=== PATIENT | male | born 1950 | race Caucasian/White ===

== ENCOUNTER 2018-04-16 14:46 | Inpatient (IN) | payer MEDICARE, OTHER ==
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
[2018-04-16 16:38] LABS: % BASOPHILS 0.6 % (0.0-2.0); % EOSINOPHILS 4.3 % (0.0-5.0); % LYMPHOCYTES 31.3 % (20.0-50.0); % MONOCYTES 8.3 % (2.0-10.0); % NEUTROPHILS 55.5 % (40.0-80.0); EOSINOPHILE ABSOLUTE 0.3 Th/cmm (0.1-0.4); HEMATOCRIT 40.2 % (41.0-60); HEMOGLOBIN 13.2 gm/dL (12-16); MEAN CELL VOLUME 87.9 fl (80-99); MEAN CORPUSCULAR HGB CONC 32.9 pg (28.0-36.0); MONOCYTE ABSOLUTE 0.5 Th/cmm (0.3-1.0); NEUTROPHILE ABSOLUTE 3.5 Th/cmm (1.8-8.0); PLATELET COUNT 178 Th/cmm (150-400); RED BLOOD COUNT 4.57 Mil/cmm (3.80-5.80); RED CELL DISTRIBUTION WIDTH 13.2 % (11.5-20.0); WHITE BLOOD COUNT 6.3 Th/cmm (4.8-10.8)
[2018-04-16 16:52] LABS: ALB/GLOB RATIO 1.2 (1.0-1.8); ALBUMIN 4.2 gm/dL (4.2-5.5); ALKALINE PHOSPHATASE 83 U/L (34-104); ANION GAP 10.5 (7.0-16.0); BILIRUBIN,TOTAL 0.4 mg/dL (0.3-1.0); BUN - UREA NITROGEN 24 mg/dL (7-25); CALCIUM SERUM 9.7 mg/dL (8.6-10.3); CARBON DIOXIDE 28.6 mEq/L (21.0-31.0); CHLORIDE 101 mEq/L (98-107); CHOLESTEROL 116 mg/dL (<200); CREATININE - SERUM 0.9 mg/dL (0.7-1.3); GFR AFRICAN-AMERICAN > 60.0 ml/min (>90); GFR NON AFRICAN-AMERICAN > 60.0 ml/min; GLUCOSE 106 mg/dL (70-105); HDL -HIGH DENSITY LIPOPROTEIN 36 mg/dL (23-92); POTASSIUM SERUM 4.1 mEq/L (3.5-5.1); SGOT 32 U/L (13-39); SGPT/ALT 26 U/L (7-52); SODIUM SERUM 136 mEq/L (136-145); TOTAL PROTEIN,SERUM 7.8 gm/dL (6.0-8.3); TRIGLYCERIDES 149 mg/dL (<150)
[2018-04-16 18:43] LABS: URINE SOURCE CLEAN C
[2018-04-16 18:47] LABS: URINE BILIRUBIN NEGATIVE (NEGATIVE); URINE BLOOD NEGATIVE (NEGATIVE); URINE GLUCOSE (UA) NEGATIVE (NEGATIVE); URINE KETONE NEGATIVE (NEGATIVE); URINE LEUKOCYTE ESTERASE NEGATIVE (NEGATIVE); URINE NITRATE NEGATIVE (NEGATIVE); URINE PH 6.5 (4.6 - 8.0); URINE PROTEIN NEGATIVE (NEGATIVE); URINE UROBILINOGEN 0.2 E.U./dL (0.2 - 1.0)
[2018-04-16 18:48] LABS: URINE CLARITY CLEAR (CLEAR); URINE COLOR YELLOW
[2018-04-16 18:49] LABS: URINE MICROSCOPIC INDICATED? NO
[2018-04-16 20:51] VITALS: BP 141/80
[2018-04-16] MEDS ORDERED: Magnesium Hydroxide (MOM) 30 mL UDC PO PRN (20:52)
[2018-04-16 21:27] LABS: CHOLESTEROL 117 mg/dL (<200); HDL -HIGH DENSITY LIPOPROTEIN 37 mg/dL (23-92); TRIGLYCERIDES 148 mg/dL (<150)
[2018-04-17] MEDS ORDERED: APAP 325mg/Butalbital 50mg/Caff 40mg Tab PO PRN (05:21)
[2018-04-17] MEDS: Multivitamin w/ Minerals Tab PO SCH (08:25)
[2018-04-17 12:24] LABS: INR 2.35 (0.5-1.4); PROTHROMBIN TIME (TEST) 23.5 SECONDS (9.5-11.5)
[2018-04-17] MEDS ORDERED: WARFARIN SODIUM PO ONE (14:00)
--- NOTE | 2018-04-17 14:04 | Diagnostic Imaging Report ---
Chest x-ray (single view, AP) HISTORY: Cough Patient is rotated. The heart is enlarged. There is a left paraspinal retrocardiac density probably related to a tortuous descending aorta. No acute focal pulmonary processes. Degenerative changes noted to the spine. IMPRESSION: 1. Cardiomegaly 2. No acute abnormalities
[2018-04-17 16:20] LABS: % BASOPHILS 0.8 % (0.0-2.0); % EOSINOPHILS 6.1 % (0.0-5.0); % LYMPHOCYTES 35.2 % (20.0-50.0); % MONOCYTES 7.8 % (2.0-10.0); % NEUTROPHILS 50.1 % (40.0-80.0); EOSINOPHILE ABSOLUTE 0.3 Th/cmm (0.1-0.4); HEMATOCRIT 38.1 % (41.0-60); HEMOGLOBIN 12.8 gm/dL (12-16); LYMPHOCYTE ABSOLUTE 1.8 Th/cmm (1.5-3.0); MEAN CELL VOLUME 86.3 fl (80-99); MEAN CORPUSCULAR HEMOGLOBIN 29.1 pg (27.0-31.0); MEAN CORPUSCULAR HGB CONC 33.7 pg (28.0-36.0); MEAN PLATELET VOLUME 8.1 fl; MONOCYTE ABSOLUTE 0.4 Th/cmm (0.3-1.0); NEUTROPHILE ABSOLUTE 2.7 Th/cmm (1.8-8.0); PLATELET COUNT 143 Th/cmm (150-400); RED BLOOD COUNT 4.41 Mil/cmm (3.80-5.80); RED CELL DISTRIBUTION WIDTH 13.2 % (11.5-20.0); WHITE BLOOD COUNT 5.2 Th/cmm (4.8-10.8)
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
--- NOTE | 2018-04-17 23:47 | Psychiatric Evaluation ---
DATE OF SERVICE: 04/16/2018 CHIEF COMPLAINT: "I am hearing voices. "I don't know what I can do." HISTORY OF PRESENT ILLNESS: This is one of multiple psychiatric hospitalizations for this patient who is reported to have been this morning to internal stimuli and has been demanding that he should be discharged right away. Staff was spoken to. The patient is interviewed. The patient is reported to have been diagnosed to have schizoaffective disorder and has been getting easily agitated. Sleep is noted to be poor. Appetite is also noted to be very poor. The patient is reporting that he had been diagnosed to have syphilis and hepatitis and he needs to be on his Klonopin and methadone. The patient is reported to have been in the past on Zyprexa, Haldol, lithium, but is reported to have not been compliant to the medications. Review of the chart indicated that the patient wants only methadone and Klonopin at this time. PAST PSYCHIATRIC HISTORY: The patient had been hospitalized and was diagnosed with the schizoaffective disorder. MEDICAL HISTORY: Physical examination is requested to be done by Dr. Ortiz. SUBSTANCE ABUSE HISTORY: The patient denies use of any drugs or alcohol. The patient is on methadone. SOCIAL HISTORY: The patient is a resident [facility] [place], this is [facility]. ALLERGIES: The patient is reporting ALLERGIC TO PENICILLIN, TEGRETOL, DILANTIN AND DEPAKOTE. MENTAL STATUS EXAMINATION: The patient is a 67-year-old, looking his stated age, superficially cooperative, confused and demanding that he should be discharged and he wants to go to [facility]. The patient is stating that his medical problems were addressed over there and he wants to go back. The patient is very paranoid. The patient who is not able to focus. The patient has paranoid delusions. The patient's short term memory is noted to be very poor. Long-term memory seems to be fair at this time. Insight and judgment are very much impaired. Impulse control is also noted to be limited. The patient is getting easily irritable. DIAGNOSES AT THE TIME OF ADMISSION: AXIS I: Psychotic disorder, not otherwise specified. B: Schizoaffective disorder by history. PLAN: To continue the patient with the supportive therapy, encouraged the patient to verbalize the concerns and the patient is going to be started with clonazepam 0.5 mg on q. 8 hours on a p.r.n. basis and encouraged the patient to verbalize the concerns rather than to act out. The patient is going to be closely monitored and encouraged to verbalize the concerns rather than to act out. [facility]# [id number]
[2018-04-18 07:19] LABS: INR 2.15 (0.5-1.4); PROTHROMBIN TIME (TEST) 21.5 SECONDS (9.5-11.5)
[2018-04-18 07:26] LABS: ANION GAP 12.5 (7.0-16.0); BUN - UREA NITROGEN 20 mg/dL (7-25); CALCIUM SERUM 10.1 mg/dL (8.6-10.3); CARBON DIOXIDE 23.7 mEq/L (21.0-31.0); CHLORIDE 104 mEq/L (98-107); GFR AFRICAN-AMERICAN > 60.0 ml/min (>90); GFR NON AFRICAN-AMERICAN > 60.0 ml/min; GLUCOSE 79 mg/dL (70-105); POTASSIUM SERUM 4.2 mEq/L (3.5-5.1); SODIUM SERUM 136 mEq/L (136-145)
[2018-04-18] MEDS: Multivitamin w/ Minerals Tab PO SCH (09:24)
--- NOTE | 2018-04-18 14:22 | Progress Notes ---
DATE: 04/18/2018 SUBJECTIVE: Staff was spoken to. The patient is interviewed. Mood is noted to be irritable. Affect is constricted. Coping skills are noted to be extremely poor. The patient has been fixated on his benzodiazepines and is stating that he has multiple medical problems. He needs to go to the [facility] to take care of his issues. No side effects to medications are noted. The patient is currently placed on low dose of Seroquel at night time in view of his paranoia and impulsivity. The patient is still confused and has been insisting on leaving. ASSESSMENT: The patient is still impulsive. PLAN: To continue the patient with the current medications and followup. JOB# [id number]
--- NOTE | 2018-04-18 16:17 | Internal Medicine Prog Note ---
Internal Medicine Subjective - Subjective Service Date: 04/18/18 Patient seen and examined:: with staff Patient is:: awake Per staff patient has:: tolerating meds Internal Medicine Objective - Results Result Diagrams: 04/17/18 12:00 04/18/18 07:12 Recent Labs: Laboratory Last Values WBC 5.2 Th/cmm (4.8-10.8) 04/17/18 12:00 RBC 4.41 Mil/cmm (3.80-5.80) 04/17/18 12:00 Hgb 12.8 gm/dL (12-16) 04/17/18 12:00 Hct 38.1 % (41.0-60) L 04/17/18 12:00 MCV 86.3 fl (80-99) 04/17/18 12:00 MCH 29.1 pg (27.0-31.0) 04/17/18 12:00 MCHC Differential 33.7 pg (28.0-36.0) 04/17/18 12:00 RDW 13.2 % (11.5-20.0) 04/17/18 12:00 Plt Count 143 Th/cmm (150-400) L 04/17/18 12:00 MPV 8.1 fl 04/17/18 12:00 Neutrophils % 50.1 % (40.0-80.0) 04/17/18 12:00 Lymphocytes % 35.2 % (20.0-50.0) 04/17/18 12:00 Monocytes % 7.8 % (2.0-10.0) 04/17/18 12:00 Eosinophils % 6.1 % (0.0-5.0) H 04/17/18 12:00 Basophils % 0.8 % (0.0-2.0) 04/17/18 12:00 PT 21.5 SECONDS (9.5-11.5) H 04/18/18 06:44 INR 2.15 (0.5-1.4) H 04/18/18 06:44 Sodium 136 mEq/L (136-145) 04/18/18 07:12 Potassium 4.2 mEq/L (3.5-5.1) 04/18/18 07:12 Chloride 104 mEq/L (98-107) 04/18/18 07:12 Carbon Dioxide 23.7 mEq/L (21.0-31.0) 04/18/18 07:12 Anion Gap 12.5 (7.0-16.0) 04/18/18 07:12 BUN 20 mg/dL (7-25) 04/18/18 07:12 Creatinine 1.0 mg/dL (0.7-1.3) 04/18/18 07:12 Est GFR ( Amer) > 60.0 ml/min (>90) 04/18/18 07:12 Est GFR (Non-Af Amer) > 60.0 ml/min 04/18/18 07:12 BUN/Creatinine Ratio 20.0 04/18/18 07:12 Glucose 79 mg/dL (70-105) 04/18/18 07:12 Calcium 10.1 mg/dL (8.6-10.3) 04/18/18 07:12 Total Bilirubin 0.4 mg/dL (0.3-1.0) 04/16/18 16:30 AST 32 U/L (13-39) 04/16/18 16:30 ALT 26 U/L (7-52) 04/16/18 16:30 Alkaline Phosphatase 83 U/L (34-104) 04/16/18 16:30 Total Protein 7.8 gm/dL (6.0-8.3) 04/16/18 16:30 Albumin 4.2 gm/dL (4.2-5.5) 04/16/18 16:30 Globulin 3.6 gm/dL 04/16/18 16:30 Albumin/Globulin Ratio 1.2 (1.0-1.8) 04/16/18 16:30 Triglycerides 148 mg/dL (<150) 04/16/18 16:30 Cholesterol 117 mg/dL (<200) 04/16/18 16:30 LDL Cholesterol Direct 63 mg/dL (75-193) L 04/16/18 16:30 HDL Cholesterol 37 mg/dL (23-92) 04/16/18 16:30 TSH 1.79 uIU/ml (0.34-5.60) 04/16/18 16:30 Urine Source CLEAN C 04/16/18 15:10 Urine Color YELLOW 04/16/18 15:10 Urine Clarity CLEAR (CLEAR) 04/16/18 15:10 Urine pH 6.5 (4.6 - 8.0) 04/16/18 15:10 Ur Specific [place] 1.010 (1.005-1.030) 04/16/18 15:10 Urine Protein NEGATIVE mg/dL (NEGATIVE) 04/16/18 15:10 Urine Glucose (UA) NEGATIVE mg/dL (NEGATIVE) 04/16/18 15:10 Urine Ketones NEGATIVE mg/dL (NEGATIVE) 04/16/18 15:10 Urine Blood NEGATIVE (NEGATIVE) 04/16/18 15:10 Urine Nitrate NEGATIVE (NEGATIVE) 04/16/18 15:10 Urine Bilirubin NEGATIVE (NEGATIVE) 04/16/18 15:10 Urine Urobilinogen 0.2 E.U./dL (0.2 - 1.0) 04/16/18 15:10 Ur Leukocyte Esterase NEGATIVE (NEGATIVE) 04/16/18 15:10 RPR REACTIVE (NONREACTIVE) H 04/16/18 16:30 - Physical Exam Vitals and I&O: Vital Signs Temp 98.8 F 04/18/18 15:26 Pulse 73 04/18/18 15:26 Resp 20 04/18/18 15:26 BP 128/75 04/18/18 15:26 Pulse Ox 96 04/18/18 15:26 Active Medications: Current Medications Acetaminophen (Tylenol) 650 mg PO Q4HR PRN PRN Reason: Mild Pain / Temp above 100 Stop: 06/15/18 20:51 Last Admin: 04/18/18 14:38 Dose: 650 mg Acetaminophen/Butalbital/Caffeine (Fioricet) 1 tab PO Q8H PRN PRN Reason: Headache Al Hydrox/Mg Hydrox/Simethicone (Maalox) 30 ml PO Q4HR PRN PRN Reason: GI DISTRESS Stop: 06/15/18 20:51 Clonazepam (Klonopin) 0.5 mg PO Q8H PRN; Protocol PRN Reason: Anxiety Stop: 06/16/18 19:04 Cyclobenzaprine HCl (Flexeril) 10 mg PO BID JENNIFER Stop: 06/15/18 21:59 Last Admin: 04/18/18 09:24 Dose: 10 mg Docusate Sodium (Colace) 100 mg PO DAILY JENNIFER Stop: 06/16/18 08:59 Last Admin: 04/18/18 09:24 Dose: 100 mg Lorazepam (Ativan) 0.5 mg PO Q4HR PRN; Protocol PRN Reason: Anxiety Stop: 05/16/18 20:51 Magnesium Hydroxide (Milk Of Magnesia) 30 ml PO HS PRN PRN Reason: Constipation Methadone HCl (Methadone) 20 mg PO TID [facility] Stop: 06/16/18 15:59 Last Admin: 04/18/18 14:18 Dose: 20 mg Quetiapine Fumarate (Seroquel) 25 mg PO HS [facility]; Protocol Stop: 06/16/18 20:59 Last Admin: 04/17/18 21:29 Dose: 25 mg Tramadol HCl (Ultram) 50 mg PO Q12H PRN PRN Reason: Pain (Severe) Stop: 06/15/18 21:48 Last Admin: 04/18/18 06:22 Dose: 50 mg Warfarin Sodium (Coumadin Per Pharmacy) 1 ea [facility]; Protocol Stop: 06/16/18 20:59 Zolpidem Tartrate (Ambien) 5 mg PO HS PRN PRN Reason: Insomnia Stop: 06/15/18 20:51 Last Admin: 04/17/18 21:29 Dose: 5 mg General: alert HEENT: NC/AT, PERRLA Neck: Supple Lungs: CTAB Cardiovascular: Normal S1, Normal S2 Abdomen: soft, non-tender, positive bowel sound Extremities: excoriation Internal Medicine Assmt/Plan - Assessment Assessment: hx dvt hep a hep b hep c hx pancreatitis depression chronic pain syndrome ptsd - Plan Plan: pain mgmt fall precautions continue current plan of care
[2018-04-19 07:33] LABS: INR 2.47 (0.5-1.4); PROTHROMBIN TIME (TEST) 24.6 SECONDS (9.5-11.5)
[2018-04-19] MEDS: Multivitamin w/ Minerals Tab PO SCH (08:45)
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
--- NOTE | 2018-04-19 13:26 | Internal Medicine Prog Note ---
Internal Medicine Subjective - Subjective Service Date: 04/19/18 Patient is:: awake Per staff patient has:: tolerating meds Internal Medicine Objective - Results Result Diagrams: 04/17/18 12:00 04/18/18 07:12 Recent Labs: Laboratory Last Values WBC 5.2 Th/cmm (4.8-10.8) 04/17/18 12:00 RBC 4.41 Mil/cmm (3.80-5.80) 04/17/18 12:00 Hgb 12.8 gm/dL (12-16) 04/17/18 12:00 Hct 38.1 % (41.0-60) L 04/17/18 12:00 MCV 86.3 fl (80-99) 04/17/18 12:00 MCH 29.1 pg (27.0-31.0) 04/17/18 12:00 MCHC Differential 33.7 pg (28.0-36.0) 04/17/18 12:00 RDW 13.2 % (11.5-20.0) 04/17/18 12:00 Plt Count 143 Th/cmm (150-400) L 04/17/18 12:00 MPV 8.1 fl 04/17/18 12:00 Neutrophils % 50.1 % (40.0-80.0) 04/17/18 12:00 Lymphocytes % 35.2 % (20.0-50.0) 04/17/18 12:00 Monocytes % 7.8 % (2.0-10.0) 04/17/18 12:00 Eosinophils % 6.1 % (0.0-5.0) H 04/17/18 12:00 Basophils % 0.8 % (0.0-2.0) 04/17/18 12:00 PT 24.6 SECONDS (9.5-11.5) H 04/19/18 07:00 INR 2.47 (0.5-1.4) H 04/19/18 07:00 Sodium 136 mEq/L (136-145) 04/18/18 07:12 Potassium 4.2 mEq/L (3.5-5.1) 04/18/18 07:12 Chloride 104 mEq/L (98-107) 04/18/18 07:12 Carbon Dioxide 23.7 mEq/L (21.0-31.0) 04/18/18 07:12 Anion Gap 12.5 (7.0-16.0) 04/18/18 07:12 BUN 20 mg/dL (7-25) 04/18/18 07:12 Creatinine 1.0 mg/dL (0.7-1.3) 04/18/18 07:12 Est GFR ( Amer) > 60.0 ml/min (>90) 04/18/18 07:12 Est GFR (Non-Af Amer) > 60.0 ml/min 04/18/18 07:12 BUN/Creatinine Ratio 20.0 04/18/18 07:12 Glucose 79 mg/dL (70-105) 04/18/18 07:12 Calcium 10.1 mg/dL (8.6-10.3) 04/18/18 07:12 Total Bilirubin 0.4 mg/dL (0.3-1.0) 04/16/18 16:30 AST 32 U/L (13-39) 04/16/18 16:30 ALT 26 U/L (7-52) 04/16/18 16:30 Alkaline Phosphatase 83 U/L (34-104) 04/16/18 16:30 Total Protein 7.8 gm/dL (6.0-8.3) 04/16/18 16:30 Albumin 4.2 gm/dL (4.2-5.5) 04/16/18 16:30 Globulin 3.6 gm/dL 04/16/18 16:30 Albumin/Globulin Ratio 1.2 (1.0-1.8) 04/16/18 16:30 Triglycerides 148 mg/dL (<150) 04/16/18 16:30 Cholesterol 117 mg/dL (<200) 04/16/18 16:30 LDL Cholesterol Direct 63 mg/dL (75-193) L 04/16/18 16:30 HDL Cholesterol 37 mg/dL (23-92) 04/16/18 16:30 TSH 1.79 uIU/ml (0.34-5.60) 04/16/18 16:30 Urine Source CLEAN C 04/16/18 15:10 Urine Color YELLOW 04/16/18 15:10 Urine Clarity CLEAR (CLEAR) 04/16/18 15:10 Urine pH 6.5 (4.6 - 8.0) 04/16/18 15:10 Ur Specific [place] 1.010 (1.005-1.030) 04/16/18 15:10 Urine Protein NEGATIVE mg/dL (NEGATIVE) 04/16/18 15:10 Urine Glucose (UA) NEGATIVE mg/dL (NEGATIVE) 04/16/18 15:10 Urine Ketones NEGATIVE mg/dL (NEGATIVE) 04/16/18 15:10 Urine Blood NEGATIVE (NEGATIVE) 04/16/18 15:10 Urine Nitrate NEGATIVE (NEGATIVE) 04/16/18 15:10 Urine Bilirubin NEGATIVE (NEGATIVE) 04/16/18 15:10 Urine Urobilinogen 0.2 E.U./dL (0.2 - 1.0) 04/16/18 15:10 Ur Leukocyte Esterase NEGATIVE (NEGATIVE) 04/16/18 15:10 RPR REACTIVE (NONREACTIVE) H 04/16/18 16:30 - Physical Exam Vitals and I&O: Vital Signs Temp 97.9 F 04/19/18 06:44 Pulse 83 04/19/18 06:44 Resp 20 04/19/18 10:20 BP 136/86 04/19/18 06:44 Pulse Ox 98 04/19/18 06:44 Intake & Output 04/18/18 04/19/18 04/19/18 18:59 06:59 18:59 Intake Total 120 Balance 120 Intake: Oral 120 Other: # Voids 3 3 # Bowel Movements 0 Active Medications: Current Medications Acetaminophen (Tylenol) 650 mg PO Q4HR PRN PRN Reason: Mild Pain / Temp above 100 Stop: 06/15/18 20:51 Last Admin: 04/18/18 14:38 Dose: 650 mg Acetaminophen/Butalbital/Caffeine (Fioricet) 1 tab PO Q8H PRN PRN Reason: Headache Al Hydrox/Mg Hydrox/Simethicone (Maalox) 30 ml PO Q4HR PRN PRN Reason: GI DISTRESS Stop: 06/15/18 20:51 Clonazepam (Klonopin) 0.5 mg PO Q8H PRN; Protocol PRN Reason: Anxiety Stop: 06/16/18 19:04 Last Admin: 04/19/18 11:40 Dose: 0.5 mg Cyclobenzaprine HCl (Flexeril) 10 mg PO BID [facility] Stop: 06/15/18 21:59 Last Admin: 04/19/18 08:45 Dose: 10 mg Docusate Sodium (Colace) 100 mg PO DAILY [facility] Stop: 06/16/18 08:59 Last Admin: 04/19/18 08:45 Dose: 100 mg Lorazepam (Ativan) 0.5 mg PO Q4HR PRN; Protocol PRN Reason: Anxiety Stop: 05/16/18 20:51 Magnesium Hydroxide (Milk Of Magnesia) 30 ml PO HS PRN PRN Reason: Constipation Methadone HCl (Methadone) 20 mg PO TID [facility] Stop: 06/16/18 15:59 Last Admin: 04/19/18 08:45 Dose: 20 mg Mupirocin (Bactroban Oint) 1 appl NS BID [facility] Stop: 04/23/18 17:01 Last Admin: 04/19/18 08:46 Dose: Not Given Quetiapine Fumarate (Seroquel) 25 mg PO [facility]; Protocol Stop: 06/16/18 20:59 Last Admin: 04/18/18 21:03 Dose: 25 mg Tramadol HCl (Ultram) 50 mg PO Q12H PRN PRN Reason: Pain (Severe) Stop: 06/15/18 21:48 Last Admin: 04/19/18 08:45 Dose: 50 mg Warfarin Sodium (Coumadin Per Pharmacy) 1 ea [facility]; Protocol Stop: 06/16/18 20:59 Zolpidem Tartrate (Ambien) 5 mg PO HS PRN PRN Reason: Insomnia Stop: 06/15/18 20:51 Last Admin: 04/17/18 21:29 Dose: 5 mg General: alert HEENT: NC/AT, PERRLA Neck: Supple Lungs: CTAB Cardiovascular: Normal S1, Normal S2 Abdomen: soft, non-tender, positive bowel sound Extremities: excoriation Internal Medicine Assmt/Plan - Assessment Assessment: hx dvt hep a hep b hep c hx pancreatitis depression chronic pain syndrome ptsd - Plan Plan: pain mgmt fall precautions continue current plan of care
[2018-04-19] MEDS: Hydrocortisone 1% Cream 1 gm Packet TP SCH (17:37)
--- NOTE | 2018-04-19 17:38 | Progress Notes ---
DATE: 04/19/2018 SUBJECTIVE: Staff was spoken to. The patient is interviewed. Mood is noted to be less irritable. Affect is appropriate, but the patient is so much focused on his pain medications. The patient is stating that the tramadol needs to be doubled-up and he should be getting it more frequently. The patient has no insight into his illness. ASSESSMENT: The patient is still impulsive. PLAN: To continue the patient with the supportive therapy. I encouraged the patient to verbalize the concerns rather than to act out. JOB# [id number]
[2018-04-20 07:25] LABS: INR 2.22 (0.5-1.4); PROTHROMBIN TIME (TEST) 22.3 SECONDS (9.5-11.5)
[2018-04-20] MEDS: Hydrocortisone 1% Cream 1 gm Packet TP SCH (08:24)
[2018-04-20] MEDS: Multivitamin w/ Minerals Tab PO SCH (08:25)
--- NOTE | 2018-04-20 21:02 | Progress Notes ---
DATE: 04/20/2018 SUBJECTIVE: Staff was spoken to. The patient is interviewed. Mood is noted to be dysphoric. Coping skills are noted to be poor. The patient is stating that he is in too much of pain and his tramadol needs to be doubled up. Coping skills at this time are noted to be very poor. Sleep and appetite are also noted to be very poor. ASSESSMENT: The patient is still impulsive and depressed, not able to contact for safety. PLAN: To continue the patient with the supportive therapy. Encouraged the patient to verbalize the concerns rather than to act out. JOB# [id number]
[2018-04-21 06:27] LABS: % BASOPHILS 0.4 % (0.0-2.0); % EOSINOPHILS 4.3 % (0.0-5.0); % LYMPHOCYTES 32.9 % (20.0-50.0); % NEUTROPHILS 53.4 % (40.0-80.0); EOSINOPHILE ABSOLUTE 0.3 Th/cmm (0.1-0.4); HEMATOCRIT 43.3 % (41.0-60); HEMOGLOBIN 14.7 gm/dL (12-16); LYMPHOCYTE ABSOLUTE 2.3 Th/cmm (1.5-3.0); MEAN CORPUSCULAR HEMOGLOBIN 28.9 pg (27.0-31.0); MONOCYTE ABSOLUTE 0.6 Th/cmm (0.3-1.0); NEUTROPHILE ABSOLUTE 3.9 Th/cmm (1.8-8.0); PLATELET COUNT 194 Th/cmm (150-400); RED BLOOD COUNT 5.09 Mil/cmm (3.80-5.80); RED CELL DISTRIBUTION WIDTH 13.1 % (11.5-20.0); WHITE BLOOD COUNT 7.1 Th/cmm (4.8-10.8)
[2018-04-21 06:31] LABS: INR 2.05 (0.5-1.4); PROTHROMBIN TIME (TEST) 20.6 SECONDS (9.5-11.5)
[2018-04-21] MEDS: Hydrocortisone 1% Cream 1 gm Packet TP SCH (08:45)
[2018-04-21] MEDS: Multivitamin w/ Minerals Tab PO SCH (08:45)
--- NOTE | 2018-04-21 11:16 | Progress Notes ---
DATE: 04/21/2018 PSYCHIATRIC PROGRESS NOTE SUBJECTIVE: Staff was spoken to. The patient is interviewed. Mood is noted to be irritable. Affect is constricted. The patient is more worried about him being part with these positive RPR patient is stating that he needs to be on a 2 mg 3 times a day of the Klonopin and we also need to double the dose of the dose of the dose of the tramadol. The patient is stating that he has been getting easily frustrated to the point of hurting others and hence it is decided to increase the dose on the Seroquel to 25 mg twice a day and closely monitor the patient. PLAN: The patient is going to be referred to the primary care physician because of positive RPR status. JOB# [id number]
[2018-04-22 06:41] LABS: INR 2.28 (0.5-1.4); PROTHROMBIN TIME (TEST) 22.8 SECONDS (9.5-11.5)
[2018-04-22] MEDS: Hydrocortisone 1% Cream 1 gm Packet TP SCH (08:18)
[2018-04-22] MEDS: Multivitamin w/ Minerals Tab PO SCH (08:18)
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
[2018-04-22] MEDS: Maalox 30 mL Cup PO PRN (16:31)
--- NOTE | 2018-04-22 21:55 | Progress Notes ---
DATE: 04/22/2018 PSYCHIATRIC PROGRESS NOTE SUBJECTIVE: Staff was spoken to. The patient is interviewed. Mood is noted to be less irritable. Affect is appropriate. The patient is reporting that he was able to talk with her sister and he is happy about it. The patient however is still worrying about his RPR status. The staff have been informed to contact her Dr. Ortiz to address the issue of the RPR status. ASSESSMENT: The patient is still irritable, angry and having acute mood swings. PLAN: To continue the patient with continue the current medications and yesterday, the Seroquel dose was increased to 25 mg twice a day. The patient is going to be closely monitored with these and then followed up. Please note that the patient is not ready to be discharged at a lower level of care in view of his impulsivity. JOB# [id number]
[2018-04-23] MEDS: Multivitamin w/ Minerals Tab PO SCH (09:38)
[2018-04-23] MEDS: Hydrocortisone 1% Cream 1 gm Packet TP SCH (09:57)
--- NOTE | 2018-04-23 12:31 | Progress Notes ---
DATE: 04/23/2018 SUBJECTIVE: Staff was spoken to. The patient is interviewed. Mood is noted to be irritable. Affect is constricted. The patient is reporting that he went to stool and it was kind of hard and has a hemorrhoid, it started to bleed. The patient's coping skills are noted to be very poor. The patient is stating that he needed to be higher dose on the tramadol and the case has been referred to Dr. Ortiz for further review. JOB# [id number]
[2018-04-23] MEDS: Maalox 30 mL Cup PO PRN (15:23)
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
[2018-04-24] MEDS: Multivitamin w/ Minerals Tab PO SCH (09:02)
[2018-04-24] MEDS: Hydrocortisone 1% Cream 1 gm Packet TP SCH (09:08)
[2018-04-24 10:43] LABS: INR 3.31 (0.5-1.4)
[2018-04-24 11:14] LABS: PROTHROMBIN TIME (TEST) 32.5 SECONDS (9.5-11.5)
--- NOTE | 2018-04-24 12:11 | Progress Notes ---
DATE: 04/24/2018 SUBJECTIVE: Staff was spoken to. The patient is interviewed. Mood is noted to be depressed. Affect is constricted. The patient is stating that he has been having constipation and whenever he is going to stool he is having the possible hemorrhoids and bleeding. The patient has been placed on the medical board to be seen by Dr. Ortiz. The patient's coping skills at this time are noted to be still poor and patient is still getting easily frustrated and is focused on more of the tramadol. JOB# [id number]
[2018-04-25 06:37] LABS: INR 2.76 (0.5-1.4); PROTHROMBIN TIME (TEST) 27.4 SECONDS (9.5-11.5)
[2018-04-25] MEDS: Multivitamin w/ Minerals Tab PO SCH (08:26)
[2018-04-25] MEDS: Hydrocortisone 1% Cream 1 gm Packet TP SCH (08:27)
--- NOTE | 2018-04-25 10:03 | Progress Notes ---
DATE: 04/25/2018 SUBJECTIVE: The patient was seen in the dining area, having breakfast. The patient appears to be guarded and easily gets irritable and frustrated. Per patient, he still has auditory hallucinations. Otherwise, the patient appears to be comfortable, in no acute distress. OBJECTIVE: VITAL SIGNS: Temperature 97.1, heart rate of 86, blood pressure 133/82, respirations 20, and saturation 100% on room air. HEENT: Head is atraumatic and normocephalic. Eyes: Bilateral conjunctivae are clear. Bilateral pupils equally round and reactive. NECK: Supple. No JVD. CARDIOVASCULAR: S1 and S2, without murmur. PULMONARY: Clear to auscultation. GASTROINTESTINAL: Soft and nontender without guarding. Positive bowel sounds. MUSCULOSKELETAL: No clubbing. No cyanosis noted. ASSESSMENT: 1. Schizoaffective disorder. 2. Osteoarthritis. 3. Chronic pain syndrome. 4. History of deep venous thrombosis. PLAN: We will continue to keep the patient inpatient Psychiatric Unit. We will follow up with psychiatrist to monitor the patient's condition and behavior. Treatment plans were discussed with the patient's nurse. Treatment plans were discussed with Dr. Ortiz. JOB# [id number]
[2018-04-25] MEDS: Maalox 30 mL Cup PO PRN (14:59)
--- NOTE | 2018-04-25 15:58 | Progress Notes ---
DATE: 04/25/2018 PSYCHIATRIC PROGRESS NOTE PROGRESS ON THE UNIT: Staff was spoken to. The patient is interviewed. Mood is noted to be irritable. Affect is constricted. The patient has been having difficult time to cope with the stress. No side effects to the medications are noted. The patient has been getting easily frustrated. The patient is more focused on his tramadol and the patient is stating that he does not need to be on the medication this much, and the patient has been placed on 25 mg twice a day of Seroquel to contain the anxiety and agitation. No side effects to the medications are noted. ASSESSMENT: The patient is still impulsive and agitated. PLAN: To continue the patient with supportive therapy and followup. [facility]# [id number]
[2018-04-26] MEDS: Multivitamin w/ Minerals Tab PO SCH (08:52)
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
[2018-04-26 10:46] LABS: INR 3.13 (0.5-1.4); PROTHROMBIN TIME (TEST) 30.8 SECONDS (9.5-11.5)
[2018-04-26] MEDS: Hydrocortisone 1% Cream 1 gm Packet TP SCH (18:12)
--- NOTE | 2018-04-26 20:13 | Progress Notes ---
DATE: 04/26/2018 SUBJECTIVE: Staff was spoken to. The patient is interviewed. Mood is noted to be irritable. Affect is constricted. Insight and judgment at this time are noted to be still impaired. Impulse control is noted to be limited. The patient is stating that he needs to be on a higher dose of the tramadol. Coping skills are noted to be poor at this time. The patient has been having difficult time. The patient is focused on the pain medications. ASSESSMENT: The patient is still impulsive. PLAN: To continue the patient with the current medications. I encouraged the patient to verbalize the concerns rather than to act out. JOB# [id number]
[2018-04-27 06:19] LABS: INR 1.32 (0.5-1.4); PROTHROMBIN TIME (TEST) 13.5 SECONDS (9.5-11.5)
[2018-04-27] MEDS: Multivitamin w/ Minerals Tab PO SCH (08:48)
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
[2018-04-27] MEDS: Hydrocortisone 1% Cream 1 gm Packet TP SCH (17:44)
--- NOTE | 2018-04-28 02:22 | Progress Notes ---
DATE: 04/27/2018 SUBJECTIVE: Staff was spoken to. The patient is interviewed. Mood is noted to be irritable. Affect is constricted. Insight and judgment are improving. Impulse control seems to be fair. Coping skills are noted to be fair. The patient has been currently on 25 mg twice a day of the Seroquel and has been able to tolerate the medications. No side effects to the medications are noted. The patient is stating that he does not need to be on 3 times a day of the methadone and he would like to cut it down to 2 times a day and hence the dose has been decreased to 20 mg twice a day and the patient is going to be followed up with the supportive therapy. The patient's tramadol has been increased up to 50 mg twice a day. JOB# [id number]
[2018-04-28 06:35] LABS: INR 1.31 (0.5-1.4); PROTHROMBIN TIME (TEST) 13.4 SECONDS (9.5-11.5)
[2018-04-28] MEDS: Multivitamin w/ Minerals Tab PO SCH (08:38)
[2018-04-28] MEDS: Hydrocortisone 1% Cream 1 gm Packet TP SCH (08:39)
[2018-04-28] MEDS: Maalox 30 mL Cup PO PRN (10:53)
--- NOTE | 2018-04-28 12:51 | Progress Notes ---
DATE: 04/28/2018 PSYCHIATRIC PROGRESS NOTE PROGRESS ON THE UNIT: Staff was spoken to. The patient is interviewed. Mood is noted to be irritable. Affect is constricted. The patient is not suicidal or homicidal, but the patient has been focused on his pain medications. No side effects to the medications are noted. The patient is not presenting with any threats to harm himself or others. ASSESSMENT: The patient is stabilizing. PLAN: To discharge the patient today for followup on an outpatient basis. [facility]# [id number]
== END 2018-04-28 12:15 | DRG 885 ==
LOC: ER 14:46 → GERO 18:50
PROVIDERS: ADMIT Psychiatry & Neurology Psychiatry; ATTEND Psychiatry & Neurology Psychiatry
DX: F23 Brief psychotic disorder (principal); B15.9 Hepatitis A without hepatic coma; B19.10 Unspecified viral hepatitis B without hepatic coma; F43.10 Post-traumatic stress disorder, unspecified; B19.20 Unspecified viral hepatitis C without hepatic coma; G89.4 Chronic pain syndrome; A53.9 Syphilis, unspecified; Z88.0 Allergy status to penicillin; Z88.8 Allergy status to other drugs, medicaments and biological substances; Z86.718 Personal history of other venous thrombosis and embolism; Z86.19 Personal history of other infectious and parasitic diseases
CPT/HCPCS: 36415-UA; 71045-TC; 80048-TC; 80053-TC; 80061-TC; 81003-TC; 82140-TC; 83036-90; 84443-TC; 85025-TC; 85610-TC; 86592-TC; 86593-TC; 86780-90; 90899; 93005; G0410; Z7610

== ENCOUNTER 2019-05-10 23:00 | Inpatient (IN) | payer MEDICARE, OTHER ==
[2019-05-11 00:03] VITALS: BP 142/80
[2019-05-11] MEDS ORDERED: Magnesium Hydroxide (MOM) 30 mL UDC PO PRN (00:03)
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
[2019-05-11] MEDS: Hydrocodone/APAP 5mg/325mg Tab PO PRN (14:18)
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
[2019-05-12] MEDS: Hydrocodone/APAP 5mg/325mg Tab PO PRN (02:26)
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
--- NOTE | 2019-05-12 22:11 | Progress Notes ---
DATE: 05/12/2019 SUBJECTIVE: Chart reviewed and the patient interviewed. Also discussed the patient's condition with the staff and reviewed the records and labs. The patient is still extremely irritable and is still extremely agitated. The patient also is still demanding and he is med seeking and asking for more pain medications and asking me to add "Soma" and other medications for pain. The patient also is still confused and in irritable and angry mood. The patient is demanding and he is abusive to staff. Also suspicious and is paranoid. Also difficulty following directions because of argumentative. On the other hand, the patient is slightly easier to redirect. The patient has no major physical complaints, but still med seeking. TREATMENT PLAN: Seroquel was increased yesterday to total 500 mg every day and he continued to take Neurontin 800 mg twice a day. We will decrease Abilify to 15 mg every day since he is taking Seroquel and we will cross titrate both. Also, continue to work on behavioral modification and his med seeking behavior. JOB# [id number]
--- NOTE | 2019-05-13 15:30 | Internal Medicine Prog Note ---
Internal Medicine Subjective - Subjective Service Date: 05/13/19 Patient is:: awake, verbal, agitated, confused Patient Complaints of:: other (On 5150 Hold.) Per staff patient has:: no adverse event, no episodes of fall Internal Medicine Objective - Physical Exam Vitals and I&O: Vital Signs Temp 97.2 F 05/13/19 14:00 Pulse 111 05/13/19 14:00 Resp 20 05/13/19 14:00 BP 110/79 05/13/19 14:00 Pulse Ox 97 05/13/19 14:00 Intake & Output 05/12/19 05/13/19 05/13/19 18:59 06:59 18:59 Intake Total 1100 120 Balance 1100 120 Intake: Oral 740 120 Other 360 Other: # Voids 3 3 # Bowel Movements 1 Active Medications: Current Medications Acetaminophen (Tylenol) 650 mg PO Q4HR PRN PRN Reason: Mild Pain (Scale 1-3) Stop: 07/10/19 00:02 Acetaminophen (Tylenol) 650 mg PO Q4H PRN PRN Reason: TEMP ABOVE 100 Stop: 07/11/19 08:35 Acetaminophen/Hydrocodone Bitart ([place] 5mg/325mg) 1 tab PO Q12HR PRN PRN Reason: Pain (Moderate 4-6) Stop: 07/10/19 08:59 Last Admin: 05/12/19 02:26 Dose: 1 tab Aripiprazole (Abilify) 15 mg PO DAILY [facility]; Protocol Stop: 07/11/19 08:59 Last Admin: 05/13/19 08:18 Dose: 15 mg Carisoprodol (Soma) 350 mg PO Q12HR [facility] Stop: 07/10/19 08:59 Last Admin: 05/13/19 08:19 Dose: 350 mg Clonazepam (Klonopin) 2 mg PO BID [facility]; Protocol Stop: 07/10/19 08:59 Last Admin: 05/13/19 08:18 Dose: 2 mg Gabapentin (Neurontin) 800 mg PO BID [facility] Stop: 07/10/19 08:59 Last Admin: 05/13/19 08:18 Dose: 800 mg Lorazepam (Ativan) 1 mg PO Q4HR PRN; Protocol PRN Reason: Anxiety Stop: 06/09/19 23:14 Magnesium Hydroxide (Milk Of Magnesia) 30 ml PO HS PRN PRN Reason: Constipation Quetiapine Fumarate (Seroquel) 200 mg PO DAILY [facility]; Protocol Stop: 07/10/19 08:59 Last Admin: 05/13/19 08:17 Dose: Not Given Quetiapine Fumarate (Seroquel) 300 mg PO HS [facility]; Protocol Stop: 07/10/19 20:59 Last Admin: 05/12/19 20:39 Dose: 300 mg Zolpidem Tartrate (Ambien) 5 mg PO HS PRN PRN Reason: Insomnia Stop: 07/10/19 00:02 General: demented HEENT: NC/AT, PERRLA Neck: Supple, No JVD Lungs: CTAB Cardiovascular: RRR, Normal S1 Abdomen: soft, non-tender Extremities: clear Neurological: no change
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
[2019-05-14] MEDS: Hydrocodone/APAP 5mg/325mg Tab PO PRN (03:01)
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
[2019-05-15] MEDS: Hydrocodone/APAP 5mg/325mg Tab PO PRN ×2 (02:49→15:02)
--- NOTE | 2019-05-15 10:19 | Progress Notes ---
DATE: 05/15/2019 SUBJECTIVE: The patient was seen in the dining area. The patient appears to be irritable, easily gets frustrated and guarded. The patient still has some occasional behavioral outburst and aggressive behavior toward others. Otherwise, the patient appears to be in no acute distress. OBJECTIVE: VITAL SIGNS: Temperature 98.3, heart rate of 80, blood pressure 135/85, respirations 20 and 93% on room air. HEENT: Head is atraumatic and normocephalic. Eyes: Bilateral conjunctivae are clear. Bilateral pupils equal, round, reactive. NECK: Supple. No JVD. CARDIOVASCULAR: S1 and S2, without murmur. PULMONARY: Clear to auscultation. GASTROINTESTINAL: Soft and nontender without guarding. Positive bowel sounds. MUSCULOSKELETAL: No clubbing. No cyanosis noted. ASSESSMENT: 1. Schizoaffective disorder. 2. Hypertension. 3. Hyperlipidemia. 4. Polysubstance abuse. PLAN: We will continue to keep the patient in Inpatient Psychiatric Unit. We will follow up with the psychiatrist to monitor the patient's condition and behavior. Treatment plans were discussed with the patient's nurse. Treatment plans were discussed with Dr. Ortiz. JOB# [id number]
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
[2019-05-16] MEDS: Hydrocodone/APAP 5mg/325mg Tab PO PRN (12:50)
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
--- NOTE | 2019-05-16 20:07 | Progress Notes ---
DATE: 05/16/2019 SUBJECTIVE: Chart reviewed and the patient interviewed. Also discussed the patient's condition with the staff and reviewed records and labs. The patient is still having episodes of paranoia. The patient also is acting strange and is manipulative. He also does not like to follow what the nurses are trying to tell him, especially when tried to redirect him. He also is still easily agitated and easily irritable. Also, still med seeking and asking for more pain medications. On the other hand, the patient is sleeping better and he is less angry. ASSESSMENT: The patient is still psychotic and is still agitated and can be dangerous to others. TREATMENT PLAN: Continue monitoring behavior and condition closely. Also, continue adjusting psychotropic medications and work on behavioral modification. JOB# [id number]
--- NOTE | 2019-05-17 07:29 | Progress Notes ---
DATE: 05/17/2019 SUBJECTIVE: Chart reviewed and the patient interviewed. Also discussed the patient's condition with the staff and reviewed records and labs. The patient continued to be in angry and in irritable mood. The patient also is still using foul language towards the staff and he is still verbally abusive and needs lots of redirections. The patient also is asking for more pain medications each time I talked to him and also goes to the nurses' station demanding more pain medications. Otherwise, the patient is reporting no side effects of medications, but still increased somatic complaints. ASSESSMENT: The patient is still agitated and aggressive and can be dangerous to others as well as medication seeking. TREATMENT PLAN: Continue to monitor his behavior and his condition closely. Also, continue adjusting psychotropic medications. Also, we will increase Seroquel today to 200 mg twice a day and 400 mg at bedtime and we will continue to follow up. JOB# [id number]
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
[2019-05-18] MEDS: Hydrocodone/APAP 5mg/325mg Tab PO PRN ×2 (03:53→16:28)
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
--- NOTE | 2019-05-19 10:50 | Progress Notes ---
DATE: SUBJECTIVE: Chart reviewed and the patient interviewed. Also discussed the patient's condition with the staff and reviewed records and labs. The patient is still hyperverbal and is still easily irritable and easily agitated. The patient also is still angry and is still verbally abusive to staff and he still has difficulty following directions. The patient also is still having severe mood swings. Also, he is still constantly asking for pain medications. Otherwise, the patient is compliant with taking medications with no side effects of medications. ASSESSMENT: The patient is still agitated and medication seeking. TREATMENT PLAN: Continue monitoring behavior closely. Also, we will continue working in his pain medication addiction. Also, working on discharge plans. [facility]# [id number]
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
[2019-05-20] MEDS: Hydrocodone/APAP 5mg/325mg Tab PO PRN ×2 (05:45→18:42)
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
--- NOTE | 2019-05-20 17:29 | Progress Notes ---
DATE: SUBJECTIVE: Chart reviewed and the patient interviewed. Also discussed the patient's condition with the staff and reviewed records and labs. The patient is still confused and anxious and restless. The patient also still has difficulty with her mood. The patient also is interacting ____ with others. She denies any hallucinations or delusions. She denies any intention to harm herself or others. ASSESSMENT: The patient is still confused and needs close monitoring. TREATMENT PLAN: Continue to monitor behavior and condition closely. Also, continue adjusting psychotropic medications and continue to follow up. [facility]# [id number]
[2019-05-21] MEDS: Hydrocodone/APAP 5mg/325mg Tab PO PRN ×2 (06:55→20:29)
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
[2019-05-22] MEDS: Hydrocodone/APAP 5mg/325mg Tab PO PRN (08:41)
--- NOTE | 2019-05-22 09:11 | Progress Notes ---
DATE: 05/22/2019 SUBJECTIVE: The patient was seen in the dining area. The patient appears to be guarded, easily gets frustrated, episodes of anxiety, behavioral outbursts, episodes of being restless. Otherwise, the patient appears to be in no acute distress. OBJECTIVE: VITAL SIGNS: Temperature 98, heart rate 88, blood pressure 114/76, respirations 20, 97% on room air. HEENT: Head is atraumatic and normocephalic. Eyes: Bilateral conjunctivae are clear. Bilateral pupils are equally round and reactive. NECK: Supple. No JVD. CARDIOVASCULAR: S1 and S2, without murmur. PULMONARY: Clear to auscultation. GASTROINTESTINAL: Soft and nontender without guarding. Positive bowel sounds. MUSCULOSKELETAL: No clubbing. No cyanosis noted. ASSESSMENT: 1. Schizoaffective disorder. 2. Polysubstance abuse. 3. Hypertension. 4. Hyperlipidemia. PLAN: We will continue to keep the patient inpatient at psychiatric unit and we will follow up with a psychiatrist to monitor the patient's behavior. We will put the patient on fall precaution. Treatment plans were discussed with the patient's nurse. Treatment plans were discussed with Dr. Ortiz. JOB# [id number]
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
--- NOTE | 2019-05-22 21:31 | Progress Notes ---
DATE: 05/22/2019 Case was discussed with staff of the patient, reviewed records. Covering for Dr. Cabrera. A 68-year-old male who was admitted on 05/10/2019 with a history of psychosis. The patient was admitted on hold because of increasing agitation, striking out behavior, has been making weapons and has not been able to control his temper and has been having poor impulse control. The patient told the staff ____ where he lives at he was afraid of going to [facility]. He was paranoid. The patient was hospitalized this year at [facility] for a similar episode, psychotic features, has been given medication Seroquel and Klonopin. The patient continues to be unpredictable, impulsive, isolating himself. Continues to be anxious. Continues to be scott, irritable, poor interaction with others, unable to make safe plan for self-care. He is on Abilify 20 mg daily and he is on Soma, Klonopin 2 mg twice a day, gabapentin 800 mg 3 times a day, hydrocodone for pain, Seroquel 200 mg twice a day and 400 mg at bedtime. No side effects with the medication, no sedation, no nausea, no extrapyramidal symptoms. We will continue to work with the patient in group therapy, milieu therapy, adjust the medication as needed. JOB# [id number]
[2019-05-23] MEDS: Hydrocodone/APAP 5mg/325mg Tab PO PRN ×2 (08:34→21:42)
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
--- NOTE | 2019-05-23 20:29 | Progress Notes ---
DATE: 05/23/2019 Case was discussed with staff of the patient, reviewed records. The patient is out of bed. Continues to be unpredictable, impulsive with poor impulse control. Continues to have poor insight. Continues to be easily agitated. He is a bit more visible on the unit. He is sleeping better, eating better. No side effects with the medication, no sedation, no nausea, no extrapyramidal symptoms. We will continue outpatient group therapy, milieu therapy, adjust the medication as needed. JOB# [id number]
[2019-05-24] MEDS: Hydrocodone/APAP 5mg/325mg Tab PO PRN ×2 (08:49→20:56)
--- NOTE | 2019-05-24 16:27 | Progress Notes ---
DATE: SUBJECTIVE: Chart was reviewed and the patient interviewed. Also discussed the patient's condition with the staff and reviewed records and labs. The patient is still extremely irritable and is still agitated, asking for more pain medications and asking for "pain management." The patient also refusing to take Seroquel at bedtime, but he is taking it during the day. He is saying that the Seroquel makes him sedated, but at the same time, it seemed that it was helping him with his pain and he was not asking for pain medications as much as when he is not taking it. Confronting the patient but the patient is not convinced. He is still argumentative and is still threatening and at times has foul language towards the staff and threatening them. Also, his thought processes are circumstantial with flight of ideas. ASSESSMENT: The patient is still agitated and is still pain medication dependence. TREATMENT PLAN: Continue working on his abuse to the pain medications. Also, casework supervisor cannot find placement for the patient yet and continue to look for placement for the patient and continue to follow up. JOB# [id number]
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
[2019-05-25] MEDS: Hydrocodone/APAP 5mg/325mg Tab PO PRN ×2 (08:49→20:42)
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
--- NOTE | 2019-05-25 17:34 | Progress Notes ---
DATE: 05/25/2019 PSYCHIATRIC PROGRESS NOTE SUBJECTIVE: Chart was reviewed and the patient interviewed. Also discussed the patient's condition with the staff and reviewed records and labs. The patient is still extremely angry and agitated and in irritable mood. The patient also threatened nurses because they did not give him Klonopin at night. He still has angry and aggressive behavior and he is still easily agitated, also still needs lots of redirections. Otherwise, the patient is compliant with taking his medications, but he is still having severe mood swings and severe irritability and anger. ASSESSMENT: The patient is still agitated and can be aggressive. TREATMENT PLAN: We will continue monitoring his behavior and his condition closely, also we will increase Abilify to 30 mg every day and we will change Klonopin to be given in a dose of 2 mg at 9:00 in the morning and 9:00 in the evening and we will continue to work on behavioral modification. Also, therapeutic case manager still working on placement issue and so far no place has accepted the patient. JOB# [id number]
[2019-05-26] MEDS: Hydrocodone/APAP 5mg/325mg Tab PO PRN ×2 (09:07→20:47)
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
--- NOTE | 2019-05-26 21:32 | Progress Notes ---
DATE: SUBJECTIVE: Chart was reviewed and the patient interviewed. Also discussed the patient's condition with the staff and reviewed records and labs. The patient is still have episodes of irritability and agitation and is still demanding. The patient also still threatening at times staff if he does not get his medications. The patient also still easily agitated and irritable, but slightly easier to redirect him and seems to be calmer than before. The patient last night refused to take 400 mg of Seroquel and took half of the pill. During the interview, the patient is calm and he is cooperative. ASSESSMENT: The patient is still having episodes of irritability and agitation. TREATMENT PLAN: Continue to monitor behavior and condition closely. Also, continue adjusting medications and work on behavioral modification. Also, we will decrease Seroquel at night 200 mg only since he said that 400 mg "causes nightmares." Also classification case manager of the patient continues to work on placement issues. JOB# [id number]
[2019-05-27] MEDS: Hydrocodone/APAP 5mg/325mg Tab PO PRN ×2 (10:04→23:24)
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
--- NOTE | 2019-05-27 19:12 | Progress Notes ---
DATE: 05/27/2019 SUBJECTIVE: Chart was reviewed and the patient interviewed. Also discussed the patient's condition with the staff and reviewed records and labs. The patient is still anxious and still at times demanding and is rambling and easily irritable and agitated, but seems to be calmer and not as agitated. Also, is slightly easier to redirect him. The patient also is sleeping better at night and he is compliant with taking his medications as prescribed. He is still complaining of pain, but not as demanding. ASSESSMENT: The patient is showing some improvement and less agitated. TREATMENT PLAN: We will continue current treatment and current medications. Also, continue monitoring his behavior and will continue to work on discharge plans and placement issue. It seemed that patient still has no place to go and machine adjuster leader case trim still working on placement issue. JOB# [id number]
[2019-05-28] MEDS: Hydrocodone/APAP 5mg/325mg Tab PO PRN (11:15)
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
[2019-05-29] MEDS: Hydrocodone/APAP 5mg/325mg Tab PO PRN ×2 (00:07→14:03)
--- NOTE | 2019-05-29 05:32 | Progress Notes ---
DATE: 05/28/2019 SUBJECTIVE: Chart was reviewed and the patient interviewed. Also discussed the patient's condition with the staff and reviewed records. DICTATION ENDS HERE JOB# [id number]
--- NOTE | 2019-05-29 10:44 | Progress Notes ---
DATE: 05/28/2019 SUBJECTIVE: Chart reviewed and the patient interviewed and discussed the patient's condition with the staff and reviewed records and labs. The patient's affect is brighter, but he still has episodes of irritability and agitation and demanding pain medications, but both episodes seem to be less than before. He also is still anxious and has difficulty interacting and expressing himself at times. Otherwise, the patient is compliant with taking his medications with no side effects of medications. ASSESSMENT: The patient is showing improvement and seems to be less irritable and less agitated. TREATMENT PLAN: Continue current treatment and current medications. Also discussed with transplant case manager discharge plans and placement issue and continue to work on his placement and discharge. JOB# [id number]
--- NOTE | 2019-05-29 13:17 | Progress Notes ---
DATE: 05/29/2019 SUBJECTIVE: The patient was seen in the dining area. The patient still appears to be aggressive, guarded, easily gets frustrated with poor impulse control, episodes of agitation, otherwise the patient appears to be in no acute distress. OBJECTIVE: VITAL SIGNS: Temperature ____, blood pressure 140/82, respirations 20, 97% on room air. HEENT: Head is atraumatic and normocephalic. Eyes: Bilateral conjunctivae are clear. Bilateral pupils are equally round and reactive. NECK: Supple. No JVD. CARDIOVASCULAR: S1 and S2, without murmur. PULMONARY: Clear to auscultation. GASTROINTESTINAL: Soft and nontender without guarding. Positive bowel sounds. MUSCULOSKELETAL: No clubbing. No cyanosis noted. ASSESSMENT: 1. Schizoaffective disorder. 2. Polysubstance abuse. 3. Hypertension. 4. Hyperlipidemia. PLAN: We will continue to keep the patient Inpatient Psychiatric Unit. We will follow up with psychiatrist to monitor the patient's condition and behavior. We will put the patient on fall precaution. Treatment plans were discussed with the patient's nurse. Treatment plans were discussed with Dr. Ortiz. JOB# [id number]
[2019-05-30] MEDS: Hydrocodone/APAP 5mg/325mg Tab PO PRN ×2 (02:25→16:39)
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
--- NOTE | 2019-05-31 02:26 | Progress Notes ---
DATE: 05/30/2019 SUBJECTIVE: The patient was seen and evaluated. The patient's chart reviewed. Today on [id number] evaluation, the patient continues to report a lot of irritable, anxiety, also does report a lot of pain in the right knee. Despite reporting a lot of pain, he is able to get up without grimacing or making any gestures of pain. MENTAL STATUS EXAMINATION: Irritable, agitated, responding. ASSESSMENT AND PLAN: Schizophrenia with dementia. We will continue with the current medication regimen as we continue to target the patient's ongoing symptoms with the recent adjustments and increase of medication by primary medical, psychiatry team. JOB# [id number]
[2019-05-31] MEDS: Hydrocodone/APAP 5mg/325mg Tab PO PRN ×2 (08:53→21:48)
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
--- NOTE | 2019-06-01 07:41 | Progress Notes ---
DATE: SUBJECTIVE: Chart reviewed and the patient interviewed. Also discussed the patient's condition with the staff and reviewed records and labs. The patient is still anxious and is still unable to provide safe plan for self-care. The patient also still asking for increasing in his pain medicine, but not as much. Cooperative and interacting more. The patient is still waiting for placement. Otherwise, no side effects of medications. [facility]# [id number]
[2019-06-01] MEDS: Hydrocodone/APAP 5mg/325mg Tab PO PRN ×2 (08:54→21:18)
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
[2019-06-02] MEDS: Hydrocodone/APAP 5mg/325mg Tab PO PRN ×2 (08:56→21:03)
--- NOTE | 2019-06-02 09:29 | Progress Notes ---
DATE: 06/01/2019 PSYCHIATRIC PROGRESS NOTE SUBJECTIVE: Chart reviewed and the patient interviewed. Also discussed the patient's condition with the staff and reviewed records and labs. The patient seems to be calmer and less irritable and less agitated, though still have episodes of agitation and irritability. The patient also is interacting more with peers and with others. The patient also is upset for being in the hospital for a long time, but at the same time watch case polisher is unable to find placement for the patient. ASSESSMENT: The patient seems to be calmer. TREATMENT PLAN: Although the patient is refusing to take Seroquel, yet he seems to be calmer with the Abilify and the Neurontin. He denies any intention to harm himself or others. Also, denies any side effects of medications. We will continue same dose and medications and same treatment and continue to work on adjusting medications as well as placement. JOB# [id number]
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
--- NOTE | 2019-06-03 01:29 | Progress Notes ---
DATE: 06/02/2019 SUBJECTIVE: Chart was reviewed and the patient interviewed. Also discussed the patient's condition with the staff and reviewed records and labs. The patient seems to be much calmer. He also seems less irritable and less agitated. The patient also is less demanding and is more cooperative with the staff. The patient also is easier to follow directions. Otherwise, the patient is compliant with taking his medications with no side effects of medications. He yesterday took only half the amount of Seroquel, but he took the rest of the other medications. He said that the Seroquel makes him tired and that is the reason he only wants half the amount. ASSESSMENT: The patient is showing much improvement. TREATMENT PLAN: Waiting for vocational case manager for placement. At the same time, continue same treatment and followup. JOB# [id number]
[2019-06-03] MEDS: Hydrocodone/APAP 5mg/325mg Tab PO PRN ×2 (09:03→20:51)
--- NOTE | 2019-06-03 10:57 | Progress Notes ---
DATE: 06/03/2019 SUBJECTIVE: Chart reviewed and the patient interviewed. Also discussed the patient's condition with the staff and reviewed records and labs. The patient seems to be calmer and less irritable and less agitated, but he is complaining of feeling dizzy and sleepy during the day. The patient is also having a steady gait, but still at times feels anxious. Otherwise, the patient is continued to comply with taking his medications. He still has episodes of irritability and anger and foul language toward the nursing staff, but it seems to be less than before. Also, his pain medication-seeking behavior has slightly decreased. ASSESSMENT: The patient is showing some improvement, but still needs more adjustment to his medications. TREATMENT PLAN: We will decrease Seroquel to 200 mg twice a day and we will discontinue Seroquel 200 mg at bedtime, hopefully that will help the patient to comply with taking his medications as he is refusing to take Seroquel at night and hopefully also that will help ____ to be irritable and also was complaining of feeling sedated. At the same time, planning and working on discharge plans. JOB# [id number]
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
[2019-06-04] MEDS: Hydrocodone/APAP 5mg/325mg Tab PO PRN (09:14)
--- NOTE | 2019-06-04 10:02 | Diagnostic Imaging Report ---
CHEST X-RAY: AP view INDICATION: Positive PPD COMPARISON: Chest x-ray 04/17/2018 FINDINGS: Chronic interstitial lung changes are noted. There is no focal consolidation or pleural effusions. Mild cardiomegaly is noted. Scoliosis is noted. IMPRESSION: Chronic interstitial lung changes. No focal consolidation. No radiographic evidence of active tuberculosis. Mild cardiomegaly.
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
== END 2019-06-04 13:45 | DRG 885 ==
LOC: GERO 23:00
PROVIDERS: ADMIT Psychiatry & Neurology Psychiatry; ATTEND Psychiatry & Neurology Psychiatry
DX: F25.0 Schizoaffective disorder, bipolar type (principal); F03.90 Unspecified dementia, unspecified severity, without behavioral disturbance, psychotic disturbance, mood disturbance, and anxiety; I10 Essential (primary) hypertension; E78.5 Hyperlipidemia, unspecified; F19.10 Other psychoactive substance abuse, uncomplicated; K75.9 Inflammatory liver disease, unspecified; J44.9 Chronic obstructive pulmonary disease, unspecified; G62.9 Polyneuropathy, unspecified
CPT/HCPCS: 71045-TC; 83036-90; 90899; G0410; Z7610

== ENCOUNTER 2019-07-18 18:50 | Inpatient (IN) | payer MEDICARE, OTHER ==
[2019-07-18] MEDS ORDERED: Maalox 30 mL Cup PO PRN (20:02)
[2019-07-18] MEDS ORDERED: Magnesium Hydroxide (MOM) 30 mL UDC PO PRN (20:02)
[2019-07-19] MEDS: Multivitamin Tab PO SCH (09:37)
[2019-07-19] MEDS: Hydrocodone/APAP 5mg/325mg Tab PO PRN ×2 (09:37→21:58)
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
[2019-07-20] MEDS: Multivitamin Tab PO SCH (08:17)
[2019-07-20] MEDS: Hydrocodone/APAP 5mg/325mg Tab PO PRN ×2 (08:18→20:43)
[2019-07-21] MEDS: Multivitamin Tab PO SCH (08:39)
--- NOTE | 2019-07-21 08:50 | Internal Medicine Prog Note ---
Internal Medicine Subjective - Subjective Patient is:: awake, verbal, in bed Per staff patient has:: no adverse event, no episodes of fall Internal Medicine Objective - Physical Exam Vitals and I&O: Vital Signs Temp 97.9 F 07/21/19 05:34 Pulse 67 07/21/19 05:34 Resp 20 07/21/19 05:34 BP 114/77 07/21/19 05:34 Pulse Ox 96 07/21/19 05:34 Intake & Output 07/20/19 07/21/19 07/21/19 18:59 06:59 18:59 Intake Total 120 Balance 120 Intake: Oral 120 Other: # Voids 2 3 # Bowel Movements 0 0 Active Medications: Current Medications Acetaminophen (Tylenol) 650 mg PO Q4HR PRN PRN Reason: Mild Pain (Scale 1-3) Stop: 09/16/19 20:01 Acetaminophen (Tylenol) 650 mg PO Q4HR PRN PRN Reason: TEMP ABOVE 100 Stop: 09/17/19 11:20 Acetaminophen/Hydrocodone Bitart ([place] 5mg/325mg) 1 tab PO Q12HR PRN PRN Reason: moderate pain 4-6 Stop: 09/16/19 20:59 Last Admin: 07/20/19 20:43 Dose: 1 tab Al Hydrox/Mg Hydrox/Simethicone (Maalox) 30 ml PO Q4HR PRN PRN Reason: GI DISTRESS Stop: 09/16/19 20:01 Aripiprazole (Abilify) 30 mg PO HS [facility]; Protocol Stop: 09/16/19 20:59 Last Admin: 07/20/19 20:24 Dose: 30 mg Carisoprodol (Soma) 350 mg PO Q12HRT [facility] Stop: 09/17/19 06:59 Last Admin: 07/21/19 06:28 Dose: 350 mg Clonazepam (Klonopin) 2 mg PO BID [facility]; Protocol Stop: 09/17/19 08:59 Last Admin: 07/21/19 08:40 Dose: 2 mg Gabapentin (Neurontin) 800 mg PO QID [facility] Stop: 09/18/19 08:59 Last Admin: 07/21/19 08:39 Dose: 800 mg Lorazepam (Ativan) 0.5 mg PO Q4HR PRN; Protocol PRN Reason: Agitation Stop: 08/17/19 20:01 Magnesium Hydroxide (Milk Of Magnesia) 30 ml PO HS PRN PRN Reason: Constipation Multivitamins/Vitamin C (Theragran) 1 tab PO DAILY [facility] Stop: 09/17/19 08:59 Last Admin: 07/21/19 08:39 Dose: 1 tab Quetiapine Fumarate (Seroquel) 200 mg PO BID [facility]; Protocol Stop: 09/17/19 08:59 Last Admin: 07/21/19 08:40 Dose: 200 mg Trazodone HCl (Desyrel) 50 mg PO HS [facility]; Protocol Stop: 09/17/19 20:59 Last Admin: 07/20/19 20:40 Dose: Not Given General: alert, NAD HEENT: NC/AT, PERRLA Neck: Supple, No JVD Lungs: other (no acute respiratory distress) Cardiovascular: RRR Abdomen: soft, non-tender, non-distended Extremities: ecchymosis Internal Medicine Assmt/Plan - Assessment Assessment: 5150 Hold for Danger to self and others. Early Dementia. Depression. Impaired physical mobility. Psychosis. History of Bipolar disorder. History of Schizoaffective disorder. History of Depression. History of Impaired physical mobility. - Plan Plan: Continue current treatment plan. Monitor Labs. Continue current medications Continue to monitor VS Monitor Diet/Nutritional support. Psych management per Psychiatry. Pain Management. PT/OT prn Safety precaution, Fall precaution, frequent nursing round. Supportive care. Continue collaborating with consulting specialists, case management and nursing team
[2019-07-21] MEDS: Hydrocodone/APAP 5mg/325mg Tab PO PRN ×2 (08:59→19:18)
--- NOTE | 2019-07-21 14:01 | Internal Medicine Prog Note ---
Internal Medicine Subjective - Subjective Service Date: 07/21/19 Patient seen and examined:: with staff Patient is:: awake, verbal, in bed Patient Complaints of:: other Per staff patient has:: no adverse event, no episodes of fall Internal Medicine Objective - Physical Exam Vitals and I&O: Vital Signs Temp 97.9 F 07/21/19 05:34 Pulse 67 07/21/19 05:34 Resp 17 07/21/19 08:00 BP 114/77 07/21/19 05:34 Pulse Ox 96 07/21/19 05:34 Intake & Output 07/20/19 07/21/19 07/21/19 18:59 06:59 18:59 Intake Total 120 Balance 120 Intake: Oral 120 Other: # Voids 2 3 # Bowel Movements 0 0 Active Medications: Current Medications Acetaminophen (Tylenol) 650 mg PO Q4HR PRN PRN Reason: Mild Pain (Scale 1-3) Stop: 09/16/19 20:01 Acetaminophen (Tylenol) 650 mg PO Q4HR PRN PRN Reason: TEMP ABOVE 100 Stop: 09/17/19 11:20 Acetaminophen/Hydrocodone Bitart ([place] 5mg/325mg) 1 tab PO Q12HR PRN PRN Reason: moderate pain 4-6 Stop: 09/16/19 20:59 Last Admin: 07/21/19 08:59 Dose: 1 tab Al Hydrox/Mg Hydrox/Simethicone (Maalox) 30 ml PO Q4HR PRN PRN Reason: GI DISTRESS Stop: 09/16/19 20:01 Aripiprazole (Abilify) 30 mg PO HS [facility]; Protocol Stop: 09/16/19 20:59 Last Admin: 07/20/19 20:24 Dose: 30 mg Carisoprodol (Soma) 350 mg PO Q12HRT [facility] Stop: 09/17/19 06:59 Last Admin: 07/21/19 06:28 Dose: 350 mg Clonazepam (Klonopin) 2 mg PO BID [facility]; Protocol Stop: 09/17/19 08:59 Last Admin: 07/21/19 08:40 Dose: 2 mg Gabapentin (Neurontin) 800 mg PO QID [facility] Stop: 09/18/19 08:59 Last Admin: 07/21/19 12:17 Dose: 800 mg Lorazepam (Ativan) 0.5 mg PO Q4HR PRN; Protocol PRN Reason: Agitation Stop: 08/17/19 20:01 Magnesium Hydroxide (Milk Of Magnesia) 30 ml PO HS PRN PRN Reason: Constipation Multivitamins/Vitamin C (Theragran) 1 tab PO DAILY [facility] Stop: 09/17/19 08:59 Last Admin: 07/21/19 08:39 Dose: 1 tab Quetiapine Fumarate (Seroquel) 200 mg PO BID [facility]; Protocol Stop: 09/17/19 08:59 Last Admin: 07/21/19 08:40 Dose: 200 mg Trazodone HCl (Desyrel) 50 mg PO HS [facility]; Protocol Stop: 09/17/19 20:59 Last Admin: 07/20/19 20:40 Dose: Not Given Physical Exam: 69 y/o male patient remains very hostile, unpredictable, agitated, needs to be monitored closely. General: alert, NAD HEENT: NC/AT, PERRLA Neck: Supple, No JVD Lungs: other (no acute respiratory distress) Cardiovascular: RRR Abdomen: soft, non-tender, non-distended Extremities: ecchymosis Neurological: no change Internal Medicine Assmt/Plan - Assessment Assessment: 5150 Hold for Danger to self and others. Early Dementia. Depression. Impaired physical mobility. Psychosis. History of Bipolar disorder. History of Schizoaffective disorder. History of Depression. History of Impaired physical mobility. - Plan Plan: Psych management as per Psych. Continue present meds as directed. Monitor vitals and labs. Supportive care. Fall precaution. Monitor diet and nutritional support. Continue current treatment plan as ordered.
[2019-07-22] MEDS: Multivitamin Tab PO SCH (10:15)
[2019-07-22] MEDS: Hydrocodone/APAP 5mg/325mg Tab PO PRN (10:19)
--- NOTE | 2019-07-22 17:56 | Internal Medicine Prog Note ---
Internal Medicine Subjective - Subjective Service Date: 07/22/19 Patient is:: awake, verbal, in bed Patient Complaints of:: other Per staff patient has:: no adverse event, no episodes of fall Internal Medicine Objective - Physical Exam Vitals and I&O: Vital Signs Temp 97.8 F 07/22/19 14:00 Pulse 91 07/22/19 14:00 Resp 20 07/22/19 14:00 BP 123/86 07/22/19 14:00 Pulse Ox 98 07/22/19 14:00 Intake & Output 07/21/19 07/22/19 07/22/19 18:59 06:59 18:59 Intake Total 1200 120 Balance 1200 120 Intake: Oral 1200 120 Other: # Voids 3 # Bowel Movements 1 Active Medications: Current Medications Acetaminophen (Tylenol) 650 mg PO Q4HR PRN PRN Reason: Mild Pain (Scale 1-3) Stop: 09/16/19 20:01 Acetaminophen (Tylenol) 650 mg PO Q4HR PRN PRN Reason: TEMP ABOVE 100 Stop: 09/17/19 11:20 Acetaminophen/Hydrocodone Bitart ([place] 5mg/325mg) 1 tab PO Q12HR PRN PRN Reason: moderate pain 4-6 Stop: 09/16/19 20:59 Last Admin: 07/22/19 10:19 Dose: 1 tab Al Hydrox/Mg Hydrox/Simethicone (Maalox) 30 ml PO Q4HR PRN PRN Reason: GI DISTRESS Stop: 09/16/19 20:01 Aripiprazole (Abilify) 30 mg PO HS [facility]ENN[facility]ER; Protocol Stop: 09/16/19 20:59 Last Admin: 07/21/19 21:07 Dose: 30 mg Carisoprodol (Soma) 350 mg PO Q12HRT [facility] Stop: 09/17/19 06:59 Last Admin: 07/22/19 06:34 Dose: 350 mg Clonazepam (Klonopin) 2 mg PO BID [facility]; Protocol Stop: 09/17/19 08:59 Last Admin: 07/22/19 16:25 Dose: 2 mg Gabapentin (Neurontin) 800 mg PO QID [facility]ENN[facility]ER Stop: 09/18/19 08:59 Last Admin: 07/22/19 16:26 Dose: 800 mg Lorazepam (Ativan) 0.5 mg PO Q4HR PRN; Protocol PRN Reason: Agitation Stop: 08/17/19 20:01 Last Admin: 07/22/19 11:16 Dose: 0.5 mg Magnesium Hydroxide (Milk Of Magnesia) 30 ml PO HS PRN PRN Reason: Constipation Multivitamins/Vitamin C (Theragran) 1 tab PO DAILY JENN[facility]ER Stop: 09/17/19 08:59 Last Admin: 07/22/19 10:15 Dose: Not Given Quetiapine Fumarate (Seroquel) 200 mg PO BID JENN[facility]ER; Protocol Stop: 09/17/19 08:59 Last Admin: 07/22/19 16:26 Dose: 200 mg General: alert, NAD HEENT: NC/AT, PERRLA Neck: Supple, No JVD Lungs: other (no acute respiratory distress) Cardiovascular: RRR Abdomen: soft, non-tender, non-distended Extremities: ecchymosis Neurological: no change Nutritional Asmnt/Malnutr-PDOC - Dietary Evaluation Malnutrition Findings (Please click <Entered> for more info): Nutritional Asmnt/Malnutrition Start: 07/22/19 11: 31 Text: Status: Complete Freq: Protocol: Document 07/22/19 11:31 ANUP (Rec: 07/22/19 11:34 ANUP [email or web address]) Nutritional Asmnt/Malnutrition Patient General Information Nutritional Screening Moderate Risk Diagnosis Psychosis Pertinent Medical Hx/Surgical Hx Bipolar disorder, Schizoaffective Disorder, Depression, Impaired Physical Mobility, Psychosis, Depression Subjective Information Pt is a 69-year-old male admitted on 07/18 d/t 5150 hold for danger to self and others. Pt is eating an estimated 90% of meals x3 days per Meal/Nutrition Activity Record. Dietary is currently providing an estimated 2150 kcals and 105 gm Pro, per Pt PO intake this is providing an estimated 1935 kcals and 95gm Pro to meet 88% kcal and 100% Pro needs- adequate. Anthropometrics HT: 61 WT: 217 LB (98.64 kg) ABW: 192 LB (87.34 kg) BMI: 28.63 (Overweight) GI/ Skin Integrity GI: WNL, Soft, Non-tender BM: 07/22 x1 I/O: 1320/Not Noted Skin: WNL, Dryness Ross: 17 Diet Order: Cardiac, NA2gm, Chopped Estimated Energy Needs: ( Geriatric, ABW) 3848-0729 kcals (25-30 kcals/ kg) 87-105g Pro (1.0-1.2 g/kg) 7573-0547 ml (25-30 ml/kg) Current Diet Order/ Nutrition Support Cardiac, NA2gm, Chopped Patient / S.O Can Pertinent Medications Maalox (PRN), MOM (PRN), Theragran, Seroquel Pertinent Labs 07/18: A1c 5.0%, Glucose 118, HDL 34 Nutritional Hx/Data Height 6 ft 1 in Height (Calculated Centimeters) 185.4 Current Weight (lbs) 217 lb Weight (Calculated Kilograms) 98.4 Weight (Calculated Grams) 54549.5 [place] Body Weight 184 LB (83.64 kg) % [place] Body Weight 118 Body Mass Index (BMI) 28.6 Weight Status Overweight GI Symptoms GI Symptoms None Last BM 07/22 x1 Skin Integrity/Comment: Skin: WNL, Dryness Ross: 17 Estimated Nutritional Goals BEE in Kcals: Adj wt of IBW Calories/Kcals/Kg 25-30 Kcals Calculated 8686-1009 Protein: Adj wt of IBW Protein g/k.0-1.2 Protein Calculated 87-105 Fluid: ml 6032-4702 ml (25-30 ml/kg) Nutritional Problem No current Nutrition Prob Problem No nutrition diagnosis at this time. Etiology N/A Signs/Symptoms: N/A Malnutrition Related to Morbid Obesity Malnutrition related to morbid obesity No Intervention/Recommendation Comments Continue Cardiac, NA2gm, Chopped diet as tolerated. Expected Outcomes/Goals Expected Outcomes/Goals 1.PO intake to continue to meet 75% of estimated nutritional needs. 2.Monitor PO intake, wt, nutrition related labs, and skin integrity. 3.F/U as low risk in 7-10 days , 1/2-08/01
[2019-07-23] MEDS: Hydrocodone/APAP 5mg/325mg Tab PO PRN ×2 (04:47→20:24)
[2019-07-23] MEDS: Multivitamin Tab PO SCH (08:29)
[2019-07-24] MEDS: Multivitamin Tab PO SCH (08:46)
[2019-07-24] MEDS: Hydrocodone/APAP 5mg/325mg Tab PO PRN (08:46)
[2019-07-25] MEDS: Hydrocodone/APAP 5mg/325mg Tab PO PRN ×2 (03:46→15:59)
[2019-07-25] MEDS: Multivitamin Tab PO SCH (09:03)
--- NOTE | 2019-07-25 11:51 | Internal Medicine Prog Note ---
Internal Medicine Subjective - Subjective Patient is:: asleep, verbal, in bed Patient Complaints of:: other Per staff patient has:: no adverse event, no episodes of fall Internal Medicine Objective - Physical Exam Vitals and I&O: Vital Signs Temp 98.3 F 07/24/19 19:57 Pulse 83 07/24/19 19:57 Resp 16 07/25/19 08:00 BP 115/75 07/24/19 19:57 Pulse Ox 97 07/24/19 19:57 Intake & Output 07/24/19 07/25/19 07/25/19 18:59 06:59 18:59 Intake Total 1300 360 Balance 1300 360 Intake: Oral 1300 360 Other: # Voids 3 1 # Bowel Movements 0 Active Medications: Current Medications Acetaminophen (Tylenol) 650 mg PO Q4HR PRN PRN Reason: Mild Pain (Scale 1-3) Stop: 09/16/19 20:01 Acetaminophen (Tylenol) 650 mg PO Q4HR PRN PRN Reason: TEMP ABOVE 100 Stop: 09/17/19 11:20 Acetaminophen/Hydrocodone Bitart ([place] 5mg/325mg) 1 tab PO Q12HR PRN PRN Reason: moderate pain 4-6 Stop: 09/16/19 20:59 Last Admin: 07/25/19 03:46 Dose: 1 tab Al Hydrox/Mg Hydrox/Simethicone (Maalox) 30 ml PO Q4HR PRN PRN Reason: GI DISTRESS Stop: 09/16/19 20:01 Aripiprazole (Abilify) 30 mg PO HS [facility]; Protocol Stop: 09/16/19 20:59 Last Admin: 07/24/19 21:35 Dose: 30 mg Carisoprodol (Soma) 350 mg PO Q12HRT [facility] Stop: 09/17/19 06:59 Last Admin: 07/25/19 06:41 Dose: 350 mg Clonazepam (Klonopin) 2 mg PO BID [facility]; Protocol Stop: 09/17/19 08:59 Last Admin: 07/25/19 09:03 Dose: 2 mg Gabapentin (Neurontin) 800 mg PO QID [facility] Stop: 09/18/19 08:59 Last Admin: 07/25/19 09:03 Dose: 800 mg Lorazepam (Ativan) 0.5 mg PO Q4HR PRN; Protocol PRN Reason: Agitation Stop: 08/17/19 20:01 Last Admin: 07/24/19 21:35 Dose: 0.5 mg Magnesium Hydroxide (Milk Of Magnesia) 30 ml PO HS PRN PRN Reason: Constipation Multivitamins/Vitamin C (Theragran) 1 tab PO DAILY JENN[facility]ER Stop: 09/17/19 08:59 Last Admin: 07/25/19 09:03 Dose: 1 tab Quetiapine Fumarate (Seroquel) 200 mg PO BID JENNIFER; Protocol Stop: 09/21/19 08:59 Last Admin: 07/25/19 09:04 Dose: Not Given General: alert, NAD HEENT: NC/AT, PERRLA Neck: Supple, No JVD Lungs: other (no acute respiratory distress) Cardiovascular: RRR Abdomen: soft, non-tender, non-distended Extremities: ecchymosis Neurological: no change Internal Medicine Assmt/Plan - Assessment Assessment: Early Dementia. Depression. Impaired physical mobility. Psychosis. History of Bipolar disorder. History of Schizoaffective disorder. History of Depression. History of Impaired physical mobility. - Plan Plan: Continue current treatment plan. Continue current medications Continue to monitor VS Monitor Diet/Nutritional support. Psych management per Psychiatry. Safety precaution, Fall precaution, frequent nursing round. Supportive care. Continue collaborating with consulting specialists, case management and nursing team Nutritional Asmnt/Malnutr-PDOC - Dietary Evaluation Malnutrition Findings (Please click <Entered> for more info): Nutritional Asmnt/Malnutrition Start: 07/22/19 11: 31 Text: Status: Complete Freq: Protocol: Document 07/22/19 11:31 ANUP (Rec: 07/22/19 11:34 ANUP [email or web address]) Nutritional Asmnt/Malnutrition Patient General Information Nutritional Screening Moderate Risk Diagnosis Psychosis Pertinent Medical Hx/Surgical Hx Bipolar disorder, Schizoaffective Disorder, Depression, Impaired Physical Mobility, Psychosis, Depression Subjective Information Pt is a 69-year-old male admitted on 07/18 d/t 5150 hold for danger to self and others. Pt is eating an estimated 90% of meals x3 days per Meal/Nutrition Activity Record. Dietary is currently providing an estimated 2150 kcals and 105 gm Pro, per Pt PO intake this is providing an estimated 1935 kcals and 95gm Pro to meet 88% kcal and 100% Pro needs- adequate. Anthropometrics HT: 61 WT: 217 LB (98.64 kg) ABW: 192 LB (87.34 kg) BMI: 28.63 (Overweight) GI/ Skin Integrity GI: WNL, Soft, Non-tender BM: 07/22 x1 I/O: 1320/Not Noted Skin: WNL, Dryness Ross: 17 Diet Order: Cardiac, NA2gm, Chopped Estimated Energy Needs: ( Geriatric, ABW) 2688-6220 kcals (25-30 kcals/ kg) 87-105g Pro (1.0-1.2 g/kg) 7048-5238 ml (25-30 ml/kg) Current Diet Order/ Nutrition Support Cardiac, NA2gm, Chopped Patient / S.O Can Pertinent Medications Maalox (PRN), MOM (PRN), Theragran, Seroquel Pertinent Labs 07/18: A1c 5.0%, Glucose 118, HDL 34 Nutritional Hx/Data Height 6 ft 1 in Height (Calculated Centimeters) 185.4 Current Weight (lbs) 217 lb Weight (Calculated Kilograms) 98.4 Weight (Calculated Grams) 08452.5 [place] Body Weight 184 LB (83.64 kg) % [place] Body Weight 118 Body Mass Index (BMI) 28.6 Weight Status Overweight GI Symptoms GI Symptoms None Last BM 07/22 x1 Skin Integrity/Comment: Skin: WNL, Dryness Ross: 17 Estimated Nutritional Goals BEE in Kcals: Adj wt of IBW Calories/Kcals/Kg 25-30 Kcals Calculated 1008-1606 Protein: Adj wt of IBW Protein g/k.0-1.2 Protein Calculated 87-105 Fluid: ml 0403-9898 ml (25-30 ml/kg) Nutritional Problem No current Nutrition Prob Problem No nutrition diagnosis at this time. Etiology N/A Signs/Symptoms: N/A Malnutrition Related to Morbid Obesity Malnutrition related to morbid obesity No Intervention/Recommendation Comments Continue Cardiac, NA2gm, Chopped diet as tolerated. Expected Outcomes/Goals Expected Outcomes/Goals 1.PO intake to continue to meet 75% of estimated nutritional needs. 2.Monitor PO intake, wt, nutrition related labs, and skin integrity. 3.F/U as low risk in 7-10 days , 1/2-15
--- NOTE | 2019-07-25 20:34 | Progress Notes ---
DATE: 07/23/2019 SUBJECTIVE: Chart was reviewed and the patient interviewed. Also discussed the patient's condition with the staff and reviewed records and labs. The patient is still preoccupied and is still restless. The patient also is still med seeking and asking for more "[place]." The patient also is still paranoid, thinking that someone is going to attack him. On the other hand, the patient slept slightly better yesterday. He still has mood swings and severe anxiety. Otherwise, the patient is compliant with taking his medications with no side effect of medications. ASSESSMENT: The patient is still confused and paranoid. TREATMENT PLAN: Continue Seroquel, Neurontin, Abilify, and Klonopin same dose. Also, continue to work on his pain management and continue to follow up. JOB# [id number]
--- NOTE | 2019-07-25 20:34 | Progress Notes ---
DATE: Chart was reviewed and the patient interviewed. Also discussed the patient's condition with the staff and reviewed records and labs. The patient is still in irritable mood and is still angry, but his affect is slightly brighter and slightly easier to redirect him. He is still asking for more of pain medications. Also, still have trouble following directions, but slightly easier to do so. The patient also has been compliant with taking his medications with no side effects except the patient refused to take trazodone and said that trazodone makes him groggy in the morning. ASSESSMENT: The patient is still in irritable mood and is still agitated. TREATMENT PLAN: Continue to monitor behavior and condition closely. Also, we will discontinue trazodone and continue other medications and we will continue to follow up. JOB# [id number]
--- NOTE | 2019-07-25 20:34 | Progress Notes ---
DATE: 07/20/2019 SUBJECTIVE: Chart was reviewed and the patient interviewed. Also discussed the patient's condition with the staff and reviewed records and labs. The patient is still demanding for pain medications and still asking to have more pain medicine. The patient also is still in irritable and angry mood and still has sexual inappropriate behavior and asking female staff to go with him to bed. Also, still complaining of pain in his knees. Otherwise, the patient is compliant with taking his medications with no side effects of medications. ASSESSMENT: The patient is still agitated and in irritable mood. TREATMENT PLAN: Continue to monitor his behavior and his condition closely. Also, we will continue to work on his irritability and his mood. Also, we will increase gabapentin to be given 4 times a day and will adjust the dose. Hopefully, increase in gabapentin will help with both his pain as well as his mood. Also, we will continue to work on his anger and irritability. Also, the patient was given trazodone 50 mg at bedtime yesterday with no side effects. [facility]# [id number]
--- NOTE | 2019-07-25 20:34 | Psychiatric Evaluation ---
DATE OF SERVICE: 07/19/2019 PSYCHIATRIC INITIAL EVALUATION AND MENTAL STATUS EXAM AGE: 69. SEX: Male. PHYSICIAN: Dr. Cabrera. CHIEF COMPLAINT: Suicidal ideations. HISTORY OF PRESENT ILLNESS: The patient is a 69-year-old male who has been under my care for treatment of bipolar disorder. The patient told staff in [facility] that he wants to shoot himself and he was going around with a butter knife. Chart reviewed and the patient interviewed and discussed the patient's condition with the staff. The patient has multiple somatic complaints and complaining of knee pain and other pain areas. The patient also admitted that he told the staff that he wants to shoot himself with a gun. The patient also has been aggressive with the staff there and has been acting out. He also upon arrival to the hospital showing inappropriate behavior and was asking one of the female nurses to get with him in bed. He is easily agitated and irritable. PAST PSYCHIATRIC HISTORY: The patient has history of multiple psychiatric hospitalizations for treatment of schizoaffective disorder, bipolar type. PAST MEDICAL HISTORY: The patient has hypertension as well as hepatitis A, B, and C. He also has chronic pain, especially in his knee. SOCIAL HISTORY: The patient said that he is , but his ex- . He has 2 children, but he is not in touch with them. The patient has history of heroin use and drinking alcohol, but he has been clean for several months. The patient denies any legal issues and denies any history of abuse. ALLERGIES: No known allergies. MENTAL STATUS EXAMINATION: The patient appears slightly older than his stated age. Anxious. Restless. Disorganized thoughts. The patient is hyperverbal and thought processes are circumstantial and tangential. The patient denies any auditory or visual hallucinations, but seems to be slightly paranoid and suspicious. The patient denies any homicidal ideations, but admits to suicidal ideations. The patient is alert and oriented to time, place, person, and situation. Intact immediate, recent and remote memories. Poor insight and poor judgment. Seems to be of average intelligence based on his verbal ability. ASSESSMENT AND PRIMARY DIAGNOSIS: Schizoaffective disorder, bipolar type, severe, with psychotic features. SECONDARY MEDICAL DIAGNOSES: 1. Hepatitis C. 2. Hypertension. 3. Chronic knee pain. TREATMENT PLAN: We will monitor the patient's behavior and condition closely. We will continue psychotropic medications and will adjust the dose. ESTIMATED LENGTH OF STAY: 5-7 days. PATIENT'S STRENGTHS AND WEAKNESSES: The patient's strength is that he is compliant with taking his medications and he is staying clean and sober. Weakness is his ineffective coping and his aggressive behavior. AFTER DISCHARGE PLAN: The patient will return to his placement and outpatient treatment and followup will continue as an outpatient. CRITERIA FOR DISCHARGE: The patient will not be agitated or suicidal and will stabilize psychotropic medications and will establish outpatient treatment plans. [facility]# [id number]
--- NOTE | 2019-07-25 20:34 | Progress Notes ---
DATE: 07/21/[address] Cabrera. Case was discussed with staff of the patient, reviewed records. This is a 69-year-old male who was admitted on 07/18/2019 on a hold for danger to self and others. The patient with a history of bipolar disorder, schizoaffective disorder depression, physical mobility, psychosis, depression. The patient is internally preoccupied, unable to answer question, unpredictable, impulsive, needing redirection. He was restarted on medication. He is on Abilify 30 mg daily, gabapentin 800 mg 4 times a day and Seroquel 200 mg twice a day with no side effects, no sedation, no nausea, no extrapyramidal symptoms. We will continue outpatient group therapy, milieu therapy, and adjust medications as needed. [facility]# [id number] MTDD
--- NOTE | 2019-07-25 20:35 | Progress Notes ---
DATE: 07/24/2019 SUBJECTIVE: The patient was seen in the dining area. The patient appears to be guarded, easily gets frustrated with poor impulse control, episodes of aggressive behavior. Otherwise, the patient appears to be in no acute distress. OBJECTIVE: VITAL SIGNS: Temperature 98.8, heart rate 93, blood pressure 113/83, respirations 18, and 96% on room air. HEENT: Head is atraumatic and normocephalic. Eyes: Bilateral conjunctivae are clear. Bilateral pupils are equally round and reactive. NECK: Supple. No JVD. CARDIOVASCULAR: S1 and S2, without murmur. PULMONARY: Clear to auscultation. GASTROINTESTINAL: Soft and nontender without guarding. Positive bowel sounds. MUSCULOSKELETAL: No clubbing. No cyanosis noted. ASSESSMENT: 1. Schizoaffective disorder. 2. Psychosis. PLAN: We will keep the patient inpatient to Psychiatric Unit. We will follow up with a psychiatrist to monitor the patient's condition and behavior. Treatment plans were discussed with the patient's nurse. Treatment plans were discussed with Dr. Ortiz. JOB# [id number]
--- NOTE | 2019-07-25 20:35 | Progress Notes ---
DATE: 07/24/[address] Hare covering for Dr. Cabrera. The patient was seen and evaluated. The patient's chart reviewed. IDENTIFICATION: A 69-year-old male with a history of generalized anxiety, panic, and also history of schizophrenia. Today, on [id number] evaluation, he denies side effects of medications. No oversedation. Nursing staff reported no oversedation. He feels depressed, sad, minimally interactive, anxiety, panic. ASSESSMENT AND PLAN: The patient is a 69-year-old male who continues to present very withdrawn and depressed. No observed symptoms. He is currently on medications as following, reconciliation reviewed, Klonopin 2 mg p.o. b.i.d., Abilify 30 mg a day, gabapentin 800 mg 4 times a day, and Seroquel 200 mg p.o. b.i.d. It is unclear which medications are being titrated. We will monitor the current dosages of medications and continue with primary psychiatrist's treatment plan and goals to continue targeting the patient's ongoing labile behavior. JOB# [id number]
--- NOTE | 2019-07-26 00:22 | Progress Notes ---
DATE: 07/25/[address] Cabrera. SUBJECTIVE: The patient was seen and evaluated. The patient's chart reviewed. Today, on [id number] evaluation, the patient denies any complications and side effects of medication. The patient continues to be verbally agitated, anxious. MENTAL STATUS EXAMINATION: Verbally anxious, agitated, disorganized. ASSESSMENT AND PLAN: The patient is a 69-year-old male with history of schizoaffective disorder, on 2 antipsychotic and tolerating medications well without complications. The patient is still with residual symptoms. He continues to demonstrate treatment resistance. We will continue with primary psychiatrist's treatment plan and goals. [facility]# [id number]
[2019-07-26] MEDS: Hydrocodone/APAP 5mg/325mg Tab PO PRN ×2 (04:06→16:06)
[2019-07-26] MEDS: Multivitamin Tab PO SCH (08:20)
--- NOTE | 2019-07-26 21:15 | Progress Notes ---
DATE: SUBJECTIVE: The patient is currently in the hospital; still really agitated, anxious. He is calm right now, but remains pretty unpredictable, labile. Currently on dosing of Seroquel, Klonopin and also dosing of Abilify. We will attempt to lower and titrate down his dosing of Seroquel given high dose of Abilify. We will attempt to confirm placement. He is not quite sure what city he lives in, still requiring some prompting and redirection. Per social work professor, the patient is coming from [facility], seems to be showing some improvement. JOB# [id number]
[2019-07-27] MEDS: Hydrocodone/APAP 5mg/325mg Tab PO PRN ×2 (03:23→15:56)
[2019-07-27] MEDS: Multivitamin Tab PO SCH (08:08)
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
--- NOTE | 2019-07-27 21:17 | Progress Notes ---
DATE: 07/27/2019 SUBJECTIVE: A 69-year-old male with history of bipolar, coming from [facility], apparently making statements that he wanted to shoot himself, going around with a butter knife. The patient has been in the hospital before, mostly fixated on leaving, but remains with poor insight and fairly impulsive, unpredictable, just wants to leave. Fair sleep, fair appetite. He is pretty anxious, pacing back and forth. ASSESSMENT: The patient is still paranoid, believing others are talking about him, wanting to leave for this reason. I have been adjusting his dosing of medications. He is on a small dose of Seroquel given that he is on Abilify. PLAN: We will continue to monitor ongoing safety concerns, concerns about poor impulse control given ongoing paranoias. JOB# [id number]
[2019-07-28] MEDS: Hydrocodone/APAP 5mg/325mg Tab PO PRN ×2 (04:04→16:49)
--- NOTE | 2019-07-28 07:07 | Progress Notes ---
DATE: 07/28/2019 SUBJECTIVE: The patient is in the hospital, seems generally calmer, more cooperative, seems to be approaching his baseline. No longer is aggressive, no agitation. Mood is "better." Still wanted to leave, but is calmer, sleeping well, eating well. Staff noting improvement. ASSESSMENT: The patient seems to be improving, calm. PLAN: We will err on the side of caution, monitor for further 24 hours. [facility]# [id number]
[2019-07-28] MEDS: Multivitamin Tab PO SCH (08:44)
--- NOTE | 2019-07-28 12:19 | Internal Medicine Prog Note ---
Internal Medicine Subjective - Subjective Patient is:: asleep, verbal, in bed, other (requesting pain medications) Patient Complaints of:: other Per staff patient has:: no adverse event, no episodes of fall, other Internal Medicine Objective - Physical Exam Vitals and I&O: Vital Signs Temp 98.8 F 07/28/19 05:02 Pulse 94 07/28/19 05:02 Resp 20 07/28/19 05:02 BP 137/79 07/28/19 05:02 Pulse Ox 97 07/28/19 05:02 Intake & Output 07/27/19 07/28/19 07/28/19 18:59 06:59 18:59 Intake Total 1000 120 Balance 1000 120 Intake: Oral 1000 120 Other: # Voids 4 3 # Bowel Movements 1 0 Active Medications: Current Medications Acetaminophen (Tylenol) 650 mg PO Q4HR PRN PRN Reason: Mild Pain (Scale 1-3) Stop: 09/16/19 20:01 Acetaminophen (Tylenol) 650 mg PO Q4HR PRN PRN Reason: TEMP ABOVE 100 Stop: 09/17/19 11:20 Acetaminophen/Hydrocodone Bitart ([place] 5mg/325mg) 1 tab PO Q12HR PRN PRN Reason: moderate pain 4-6 Stop: 09/16/19 20:59 Last Admin: 07/28/19 04:04 Dose: 1 tab Al Hydrox/Mg Hydrox/Simethicone (Maalox) 30 ml PO Q4HR PRN PRN Reason: GI DISTRESS Stop: 09/16/19 20:01 Aripiprazole (Abilify) 30 mg PO HS [facility]; Protocol Stop: 09/16/19 20:59 Last Admin: 07/27/19 20:20 Dose: 30 mg Carisoprodol (Soma) 350 mg PO Q12HRT [facility] Stop: 09/17/19 06:59 Last Admin: 07/28/19 06:45 Dose: 350 mg Clonazepam (Klonopin) 2 mg PO BID [facility]; Protocol Stop: 09/17/19 08:59 Last Admin: 07/28/19 08:44 Dose: 2 mg Gabapentin (Neurontin) 800 mg PO QID [facility] Stop: 09/18/19 08:59 Last Admin: 07/28/19 08:44 Dose: 800 mg Lorazepam (Ativan) 0.5 mg PO Q4HR PRN; Protocol PRN Reason: Agitation Stop: 08/17/19 20:01 Last Admin: 07/27/19 21:14 Dose: 0.5 mg Magnesium Hydroxide (Milk Of Magnesia) 30 ml PO HS PRN PRN Reason: Constipation Multivitamins/Vitamin C (Theragran) 1 tab PO DAILY [facility] Stop: 09/17/19 08:59 Last Admin: 07/28/19 08:44 Dose: 1 tab Quetiapine Fumarate (Seroquel) 100 mg PO BID [facility]; Protocol Stop: 09/24/19 16:59 Last Admin: 07/28/19 08:54 Dose: Not Given General: NAD, other (sleeping but arousable) HEENT: NC/AT, PERRLA Neck: Supple, No JVD Lungs: other (no acute respiratory distress) Cardiovascular: RRR Abdomen: soft, non-tender, non-distended Extremities: ecchymosis Neurological: no change Internal Medicine Assmt/Plan - Assessment Assessment: Early Dementia. Depression. Impaired physical mobility. Psychosis. History of Bipolar disorder. History of Schizoaffective disorder. History of Depression. History of Impaired physical mobility. - Plan Plan: Continue current treatment plan. Continue current medications Continue to monitor VS Monitor Diet/Nutritional support. Psych management per Psychiatry. Safety precaution, Fall precaution, frequent nursing round. Supportive care. Continue collaborating with consulting specialists, case management and nursing team Nutritional Asmnt/Malnutr-PDOC - Dietary Evaluation Malnutrition Findings (Please click <Entered> for more info): Nutritional Asmnt/Malnutrition Start: 07/22/19 11: 31 Text: Status: Complete Freq: Protocol: Document 07/22/19 11:31 ANUP (Rec: 07/22/19 11:34 ANUP [email or web address]) Nutritional Asmnt/Malnutrition Patient General Information Nutritional Screening Moderate Risk Diagnosis Psychosis Pertinent Medical Hx/Surgical Hx Bipolar disorder, Schizoaffective Disorder, Depression, Impaired Physical Mobility, Psychosis, Depression Subjective Information Pt is a 69-year-old male admitted on 07/18 d/t 5150 hold for danger to self and others. Pt is eating an estimated 90% of meals x3 days per Meal/Nutrition Activity Record. Dietary is currently providing an estimated 2150 kcals and 105 gm Pro, per Pt PO intake this is providing an estimated 1935 kcals and 95gm Pro to meet 88% kcal and 100% Pro needs- adequate. Anthropometrics HT: 61 WT: 217 LB (98.64 kg) ABW: 192 LB (87.34 kg) BMI: 28.63 (Overweight) GI/ Skin Integrity GI: WNL, Soft, Non-tender BM: 07/22 x1 I/O: 1320/Not Noted Skin: WNL, Dryness Ross: 17 Diet Order: Cardiac, NA2gm, Chopped Estimated Energy Needs: ( Geriatric, ABW) 0814-3438 kcals (25-30 kcals/ kg) 87-105g Pro (1.0-1.2 g/kg) 2643-5317 ml (25-30 ml/kg) Current Diet Order/ Nutrition Support Cardiac, NA2gm, Chopped Patient / S.O Can Pertinent Medications Maalox (PRN), MOM (PRN), Theragran, Seroquel Pertinent Labs 07/18: A1c 5.0%, Glucose 118, HDL 34 Nutritional Hx/Data Height 6 ft 1 in Height (Calculated Centimeters) 185.4 Current Weight (lbs) 217 lb Weight (Calculated Kilograms) 98.4 Weight (Calculated Grams) 07705.5 [place] Body Weight 184 LB (83.64 kg) % [place] Body Weight 118 Body Mass Index (BMI) 28.6 Weight Status Overweight GI Symptoms GI Symptoms None Last BM 07/22 x1 Skin Integrity/Comment: Skin: WNL, Dryness Ross: 17 Estimated Nutritional Goals BEE in Kcals: Adj wt of IBW Calories/Kcals/Kg 25-30 Kcals Calculated 3423-5503 Protein: Adj wt of IBW Protein g/k.0-1.2 Protein Calculated 87-105 Fluid: ml 8676-0668 ml (25-30 ml/kg) Nutritional Problem No current Nutrition Prob Problem No nutrition diagnosis at this time. Etiology N/A Signs/Symptoms: N/A Malnutrition Related to Morbid Obesity Malnutrition related to morbid obesity No Intervention/Recommendation Comments Continue Cardiac, NA2gm, Chopped diet as tolerated. Expected Outcomes/Goals Expected Outcomes/Goals 1.PO intake to continue to meet 75% of estimated nutritional needs. 2.Monitor PO intake, wt, nutrition related labs, and skin integrity. 3.F/U as low risk in 7-10 days , 1/2-08/01
[2019-07-29] MEDS: Hydrocodone/APAP 5mg/325mg Tab PO PRN ×2 (04:51→16:34)
[2019-07-29] MEDS: Multivitamin Tab PO SCH (08:23)
--- NOTE | 2019-07-29 17:07 | Internal Medicine Prog Note ---
Internal Medicine Subjective - Subjective Service Date: 07/29/19 Patient is:: asleep, verbal, in bed, other (requesting pain medications) Patient Complaints of:: other Per staff patient has:: no adverse event, no episodes of fall, other Internal Medicine Objective - Physical Exam Vitals and I&O: Vital Signs Temp 99.1 F 07/29/19 14:00 Pulse 94 07/29/19 14:00 Resp 20 07/29/19 14:00 BP 120/88 07/29/19 14:00 Pulse Ox 96 07/29/19 14:00 Intake & Output 07/28/19 07/29/19 07/29/19 18:59 06:59 18:59 Intake Total 1200 180 Balance 1200 180 Intake: Oral 1080 180 Other 120 Other: # Voids 3 2 # Bowel Movements 0 0 Active Medications: Current Medications Acetaminophen (Tylenol) 650 mg PO Q4HR PRN PRN Reason: Mild Pain (Scale 1-3) Stop: 09/16/19 20:01 Acetaminophen (Tylenol) 650 mg PO Q4HR PRN PRN Reason: TEMP ABOVE 100 Stop: 09/17/19 11:20 Acetaminophen/Hydrocodone Bitart ([place] 5mg/325mg) 1 tab PO Q12HR PRN PRN Reason: moderate pain 4-6 Stop: 09/16/19 20:59 Last Admin: 07/29/19 16:34 Dose: 1 tab Al Hydrox/Mg Hydrox/Simethicone (Maalox) 30 ml PO Q4HR PRN PRN Reason: GI DISTRESS Stop: 09/16/19 20:01 Aripiprazole (Abilify) 30 mg PO HS [facility]; Protocol Stop: 09/16/19 20:59 Last Admin: 07/28/19 20:23 Dose: 30 mg Carisoprodol (Soma) 350 mg PO Q12HRT [facility] Stop: 09/17/19 06:59 Last Admin: 07/29/19 06:42 Dose: 350 mg Clonazepam (Klonopin) 2 mg PO BID [facility]; Protocol Stop: 09/17/19 08:59 Last Admin: 07/29/19 16:33 Dose: 2 mg Gabapentin (Neurontin) 800 mg PO QID [facility] Stop: 09/18/19 08:59 Last Admin: 07/29/19 16:32 Dose: 800 mg Lorazepam (Ativan) 0.5 mg PO Q4HR PRN; Protocol PRN Reason: Agitation Stop: 08/17/19 20:01 Last Admin: 07/29/19 08:23 Dose: 0.5 mg Magnesium Hydroxide (Milk Of Magnesia) 30 ml PO HS PRN PRN Reason: Constipation Multivitamins/Vitamin C (Theragran) 1 tab PO DAILY [facility] Stop: 09/17/19 08:59 Last Admin: 07/29/19 08:23 Dose: 1 tab Quetiapine Fumarate 50 mg/ (Quetiapine Fumarate 25 mg) 75 mg PO BID [facility] Stop: 09/27/19 16:59 Last Admin: 07/29/19 16:33 Dose: 75 mg General: NAD, other (sleeping but arousable) HEENT: NC/AT, PERRLA Neck: Supple, No JVD Lungs: other (no acute respiratory distress) Cardiovascular: RRR Abdomen: soft, non-tender, non-distended Extremities: ecchymosis Neurological: no change Internal Medicine Assmt/Plan - Assessment Assessment: Early Dementia. Depression. Impaired physical mobility. Psychosis. History of Bipolar disorder. History of Schizoaffective disorder. History of Depression. History of Impaired physical mobility. - Plan Plan: Continue current treatment plan. Continue current medications Continue to monitor VS Monitor Diet/Nutritional support. Psych management per Psychiatry. Safety precaution, Fall precaution, frequent nursing round. Supportive care. Continue collaborating with consulting specialists, case management and nursing team Nutritional Asmnt/Malnutr-PDOC - Dietary Evaluation Malnutrition Findings (Please click <Entered> for more info): Nutritional Asmnt/Malnutrition Start: 07/22/19 11: 31 Text: Status: Complete Freq: Protocol: Document 07/22/19 11:31 ANUP (Rec: 07/22/19 11:34 ANUP [id number]) Nutritional Asmnt/Malnutrition Patient General Information Nutritional Screening Moderate Risk Diagnosis Psychosis Pertinent Medical Hx/Surgical Hx Bipolar disorder, Schizoaffective Disorder, Depression, Impaired Physical Mobility, Psychosis, Depression Subjective Information Pt is a 69-year-old male admitted on 07/18 d/t 5150 hold for danger to self and others. Pt is eating an estimated 90% of meals x3 days per Meal/Nutrition Activity Record. Dietary is currently providing an estimated 2150 kcals and 105 gm Pro, per Pt PO intake this is providing an estimated 1935 kcals and 95gm Pro to meet 88% kcal and 100% Pro needs- adequate. Anthropometrics HT: 61 WT: 217 LB (98.64 kg) ABW: 192 LB (87.34 kg) BMI: 28.63 (Overweight) GI/ Skin Integrity GI: WNL, Soft, Non-tender BM: 07/22 x1 I/O: 1320/Not Noted Skin: WNL, Dryness Ross: 17 Diet Order: Cardiac, NA2gm, Chopped Estimated Energy Needs: ( Geriatric, ABW) 2172-3203 kcals (25-30 kcals/ kg) 87-105g Pro (1.0-1.2 g/kg) 5475-8463 ml (25-30 ml/kg) Current Diet Order/ Nutrition Support Cardiac, NA2gm, Chopped Patient / S.O Can Pertinent Medications Maalox (PRN), MOM (PRN), Theragran, Seroquel Pertinent Labs 07/18: A1c 5.0%, Glucose 118, HDL 34 Nutritional Hx/Data Height 6 ft 1 in Height (Calculated Centimeters) 185.4 Current Weight (lbs) 217 lb Weight (Calculated Kilograms) 98.4 Weight (Calculated Grams) 53787.5 [place] Body Weight 184 LB (83.64 kg) % [place] Body Weight 118 Body Mass Index (BMI) 28.6 Weight Status Overweight GI Symptoms GI Symptoms None Last BM 07/22 x1 Skin Integrity/Comment: Skin: WNL, Dryness Ross: 17 Estimated Nutritional Goals BEE in Kcals: Adj wt of IBW Calories/Kcals/Kg 25-30 Kcals Calculated 4319-4185 Protein: Adj wt of IBW Protein g/k.0-1.2 Protein Calculated 87-105 Fluid: ml 6548-8333 ml (25-30 ml/kg) Nutritional Problem No current Nutrition Prob Problem No nutrition diagnosis at this time. Etiology N/A Signs/Symptoms: N/A Malnutrition Related to Morbid Obesity Malnutrition related to morbid obesity No Intervention/Recommendation Comments Continue Cardiac, NA2gm, Chopped diet as tolerated. Expected Outcomes/Goals Expected Outcomes/Goals 1.PO intake to continue to meet 75% of estimated nutritional needs. 2.Monitor PO intake, wt, nutrition related labs, and skin integrity. 3.F/U as low risk in 7-10 days , 1/2-08/01
--- NOTE | 2019-07-29 20:56 | Progress Notes ---
DATE: 07/29/2019 SUBJECTIVE: The patient was to have been discharged today, but I guess the facility is concerned that he may not be taking his medications. He states it is causing too much drowsiness and is willing to accept a lower dose of the medications. I will be lowering his dose of Seroquel to 75 mg twice daily. The patient remains fairly intrusive, fixated on leaving. History of hospitalizations. We will hold off on his discharge for further 24-48 hours. The patient has not been aggressive or agitated, but staff concerned about his impulsivity, impulse control and clearly compliance issues. JOB# [id number]
[2019-07-30] MEDS: Hydrocodone/APAP 5mg/325mg Tab PO PRN ×2 (05:09→18:40)
[2019-07-30] MEDS: Multivitamin Tab PO SCH (08:38)
--- NOTE | 2019-07-30 20:46 | Internal Medicine Prog Note ---
Internal Medicine Subjective - Subjective Service Date: 07/30/19 Patient seen and examined:: with staff Patient is:: awake, verbal, in bed, other (requesting pain medications) Patient Complaints of:: other Per staff patient has:: no adverse event, no episodes of fall, other Internal Medicine Objective - Physical Exam Vitals and I&O: Vital Signs Temp 97.6 F 07/30/19 14:00 Pulse 104 07/30/19 14:00 Resp 18 07/30/19 14:00 BP 124/84 07/30/19 14:00 Pulse Ox 96 07/30/19 14:00 Intake & Output 07/30/19 07/30/19 07/31/19 06:59 18:59 06:59 Intake Total 120 1200 60 Balance 120 1200 60 Intake: Oral 120 1200 60 Other: # Voids 3 1 # Bowel Movements 1 0 Active Medications: Current Medications Acetaminophen (Tylenol) 650 mg PO Q4HR PRN PRN Reason: Mild Pain (Scale 1-3) Stop: 09/16/19 20:01 Acetaminophen (Tylenol) 650 mg PO Q4HR PRN PRN Reason: TEMP ABOVE 100 Stop: 09/17/19 11:20 Acetaminophen/Hydrocodone Bitart ([place] 5mg/325mg) 1 tab PO Q12HR PRN PRN Reason: moderate pain 4-6 Stop: 09/16/19 20:59 Last Admin: 07/30/19 18:40 Dose: 1 tab Al Hydrox/Mg Hydrox/Simethicone (Maalox) 30 ml PO Q4HR PRN PRN Reason: GI DISTRESS Stop: 09/16/19 20:01 Aripiprazole (Abilify) 30 mg PO HS [facility]; Protocol Stop: 09/16/19 20:59 Last Admin: 07/30/19 20:32 Dose: 30 mg Carisoprodol (Soma) 350 mg PO Q12HRT [facility] Stop: 09/17/19 06:59 Last Admin: 07/30/19 18:13 Dose: 350 mg Clonazepam (Klonopin) 2 mg PO BID [facility]; Protocol Stop: 09/17/19 08:59 Last Admin: 07/30/19 16:26 Dose: 2 mg Gabapentin (Neurontin) 800 mg PO QID [facility] Stop: 09/18/19 08:59 Last Admin: 07/30/19 20:33 Dose: 800 mg Lorazepam (Ativan) 0.5 mg PO Q4HR PRN; Protocol PRN Reason: Agitation Stop: 08/17/19 20:01 Last Admin: 07/30/19 20:33 Dose: 0.5 mg Magnesium Hydroxide (Milk Of Magnesia) 30 ml PO HS PRN PRN Reason: Constipation Multivitamins/Vitamin C (Theragran) 1 tab PO DAILY [facility] Stop: 09/17/19 08:59 Last Admin: 07/30/19 08:38 Dose: 1 tab Quetiapine Fumarate 50 mg/ (Quetiapine Fumarate 25 mg) 75 mg PO BID [facility] Stop: 09/27/19 16:59 Last Admin: 07/30/19 16:26 Dose: 75 mg Physical Exam: 69 y/o male patient was not taking meds as directed and he states it made him too sleepy, medication was lowered in strength, We will continue monitoring patient. General: NAD, other (sleeping but arousable) HEENT: NC/AT, PERRLA Neck: Supple, No JVD Lungs: other (no acute respiratory distress) Cardiovascular: RRR Abdomen: soft, non-tender, non-distended Extremities: ecchymosis Neurological: no change Internal Medicine Assmt/Plan - Assessment Assessment: Early Dementia. Depression. Impaired physical mobility. Psychosis. History of Bipolar disorder. History of Schizoaffective disorder. History of Depression. History of Impaired physical mobility. - Plan Plan: Psych management as per Psych. Continue present meds as directed. Monitor vitals and labs. Supportive care. Fall precaution. Monitor diet and nutritional support. Continue current treatment plan as ordered. Nutritional Asmnt/Malnutr-PDOC - Dietary Evaluation Malnutrition Findings (Please click <Entered> for more info): Nutritional Asmnt/Malnutrition Start: 07/22/19 11: 31 Text: Status: Complete Freq: Protocol: Document 07/22/19 11:31 ANUP (Rec: 07/22/19 11:34 ANUP [id number]) Nutritional Asmnt/Malnutrition Patient General Information Nutritional Screening Moderate Risk Diagnosis Psychosis Pertinent Medical Hx/Surgical Hx Bipolar disorder, Schizoaffective Disorder, Depression, Impaired Physical Mobility, Psychosis, Depression Subjective Information Pt is a 69-year-old male admitted on 07/18 d/t 5150 hold for danger to self and others. Pt is eating an estimated 90% of meals x3 days per Meal/Nutrition Activity Record. Dietary is currently providing an estimated 2150 kcals and 105 gm Pro, per Pt PO intake this is providing an estimated 1935 kcals and 95gm Pro to meet 88% kcal and 100% Pro needs- adequate. Anthropometrics HT: 61 WT: 217 LB (98.64 kg) ABW: 192 LB (87.34 kg) BMI: 28.63 (Overweight) GI/ Skin Integrity GI: WNL, Soft, Non-tender BM: 07/22 x1 I/O: 1320/Not Noted Skin: WNL, Dryness Ross: 17 Diet Order: Cardiac, NA2gm, Chopped Estimated Energy Needs: ( Geriatric, ABW) 1130-0002 kcals (25-30 kcals/ kg) 87-105g Pro (1.0-1.2 g/kg) 8637-6505 ml (25-30 ml/kg) Current Diet Order/ Nutrition Support Cardiac, NA2gm, Chopped Patient / S.O Can Pertinent Medications Maalox (PRN), MOM (PRN), Theragran, Seroquel Pertinent Labs 07/18: A1c 5.0%, Glucose 118, HDL 34 Nutritional Hx/Data Height 1.85 m Height (Calculated Centimeters) 185.4 Current Weight (lbs) 98.43 kg Weight (Calculated Kilograms) 98.4 Weight (Calculated Grams) 18035.5 [place] Body Weight 184 LB (83.64 kg) % [place] Body Weight 118 Body Mass Index (BMI) 28.6 Weight Status Overweight GI Symptoms GI Symptoms None Last BM 07/22 x1 Skin Integrity/Comment: Skin: WNL, Dryness Ross: 17 Estimated Nutritional Goals BEE in Kcals: Adj wt of IBW Calories/Kcals/Kg 25-30 Kcals Calculated 5463-3199 Protein: Adj wt of IBW Protein g/k.0-1.2 Protein Calculated 87-105 Fluid: ml 7956-6302 ml (25-30 ml/kg) Nutritional Problem No current Nutrition Prob Problem No nutrition diagnosis at this time. Etiology N/A Signs/Symptoms: N/A Malnutrition Related to Morbid Obesity Malnutrition related to morbid obesity No Intervention/Recommendation Comments Continue Cardiac, NA2gm, Chopped diet as tolerated. Expected Outcomes/Goals Expected Outcomes/Goals 1.PO intake to continue to meet 75% of estimated nutritional needs. 2.Monitor PO intake, wt, nutrition related labs, and skin integrity. 3.F/U as low risk in 7-10 days , 07/29-08/01
--- NOTE | 2019-07-30 21:13 | Progress Notes ---
DATE: 07/30/2019 SUBJECTIVE: The patient in the hospital, still refusing to take his medications. We cannot place him unless he is compliant with his medications. He is only taking a portion of his Seroquel, so his place of residence is not going to have him back. We explained this to him. Erratic behaviors, manipulative behaviors, impulsive, unpredictable, history of hospitalizations in the past. He has a tendency to get aggressive at times that is why he is a place of residence, needs to be more compliance, refusing to talk to me today, very upset. PLAN: We will continue to monitor, encourage medication compliance. JOB# [id number]
[2019-07-31] MEDS: Hydrocodone/APAP 5mg/325mg Tab PO PRN (06:47)
--- NOTE | 2019-07-31 07:05 | Progress Notes ---
DATE: SUBJECTIVE: The patient seen, chart reviewed, discussed with staff. The patient in the hospital, calmer today, seems he is more med compliant. No events over the past 48 hours, facility wants to take him back. Doing well on current dosing of Abilify, Seroquel. No SI, no HI, no intent, no plan. No overt psychotic symptoms. Staff noting improvement. PLAN: We will discharge today. JOB# [id number]
[2019-07-31] MEDS: Multivitamin Tab PO SCH (08:59)
--- NOTE | 2019-07-31 10:28 | Progress Notes ---
DATE: 07/31/2019 SUBJECTIVE: The patient was seen at the dining area. The patient appears to be calm, interactive. No behavioral outbursts or changes within the past 2 days. The patient is pending for discharge. Otherwise, the patient is in no acute distress. The patient is planned to be discharged, going back to assisted living facility. OBJECTIVE: VITAL SIGNS: Temperature 97.2, heart rate 85, blood pressure 130/92, respirations 19, 98% on room air. HEENT: Head is atraumatic and normocephalic. Eyes: Bilateral conjunctivae are clear. Bilateral pupils are equally round and reactive. NECK: Supple. No JVD. CARDIOVASCULAR: S1 and S2, without murmur. PULMONARY: Clear to auscultation. GASTROINTESTINAL: Soft and nontender without guarding. Positive bowel sounds. MUSCULOSKELETAL: No clubbing. No cyanosis noted. ASSESSMENT: 1. Schizoaffective disorder. 2. Psychosis. 3. Unsteady gait. PLAN: The patient is for discharge today to assisted living facility. The patient has prescriptions and will follow up with a psychiatrist on outpatient basis. Treatment plans were discussed with the patient's nurse. Treatment plans were discussed with Dr. Ortiz. JOB# [id number]
== END 2019-07-31 13:45 | DRG 885 ==
LOC: GERO 18:50
PROVIDERS: ADMIT Psychiatry & Neurology Psychiatry; ATTEND Psychiatry & Neurology Psychiatry
DX: F25.0 Schizoaffective disorder, bipolar type (principal); B19.20 Unspecified viral hepatitis C without hepatic coma; F03.90 Unspecified dementia, unspecified severity, without behavioral disturbance, psychotic disturbance, mood disturbance, and anxiety; F29 Unspecified psychosis not due to a substance or known physiological condition; I10 Essential (primary) hypertension; G89.29 Other chronic pain; M25.562 Pain in left knee; M25.561 Pain in right knee; R26.9 Unspecified abnormalities of gait and mobility
CPT/HCPCS: 83036-90; G0410; Z7610